=== PATIENT | female | born 1955 | race Caucasian/White ===

== ENCOUNTER 2018-04-04 12:25 | Day surgery (SDC) | payer MEDICARE ==
[2018-04-03 12:55] VITALS: BMI 44.6
--- NOTE | 2018-04-03 16:01 | HP ---
HISTORY OF PRESENT ILLNESS: Marcelle Bocanegra is a 63-year-old female, who in 2015 placed right arm fistula and then subsequently she underwent cephalic vein transposition fistula due to her obesity. She dialyzes at [facility] in [place] on Tuesday, Tuesday, and Tuesday, beginning dialysis at 10:30 a.m. She was referred to the [facility], where they placed a peritoneal dialysis catheter that exit her right lower quadrant. She has had problems with its functioning, has been back on at least 1 or 2 occasions for interventions, where they placed J-wires and she has been referred now for laparoscopic evaluation. The patient has had a pacemaker placed for bradycardia at [facility] in the last few months. She has had a cardiac stress test with Dr. Manjit Orozco 3 months ago that was normal, echo cardiogram that was normal. She is not on anticoagulation. She is safe to proceed from a cardiac standpoint as she is asymptomatic. ALLERGIES: PENICILLIN, HIVES; DEMEROL, PRURITUS; SHE IS LISTED ALPRAZOLAM ALLERGIES, BUT DOES NOT RECALL IT BEING A PROBLEM. SOCIAL HISTORY: Tobacco, never. Alcohol, never. MEDICATIONS: 1. Atorvastatin 40 mg a day. 2. Metoprolol ER 25 mg extended daily. 3. [place] 5/325 p.r.n. 4. Renvela three times a day with meals. 5. Sertraline 50 mg a day. 6. Verapamil ER 120 daily. 7. Temazepam 15 mg at bedtime as needed. 8. Gabapentin 100 mg daily. 9. Levemir 27 units q.a.m. 10. NovoLog insulin a.c. 5 units. 11. Levothyroxine 150 mcg daily. 12. Omeprazole 20 mg daily. 13. Acetaminophen as needed for pain. 14. She denies being on anticoagulation, but she is listed as being on Coumadin. 15. Aleve 220 mg every 12 hours. PAST MEDICAL HISTORY: End-stage renal disease; diabetes mellitus insulin dependent; diabetic retinopathy; coronary artery disease, stable; as noted above, hypertension, low thyroid treated medically; and chronic anticoagulation. PAST SURGICAL HISTORY: She had a coronary artery bypass grafting in [place] 15 years ago. She had a cardiac stress test by Dr. Manjit Orozco three months ago. Echocardiogram by Dr. Manjit Orozco three months ago. She has pacemaker placed for bradycardia. Recently, she has a history of atrial fibrillation, has been on anticoagulation. She has had an open cholecystectomy, hysterectomy, orthopedic surgery, right arm fistula in June 2014 with subsequent transposition. REVIEW OF SYSTEMS: Noncontributory. PHYSICAL EXAMINATION: VITAL SIGNS: Weight 248 pounds, 62 inches, 45 BMI. Blood pressure 114/35, pulse 80, and temperature 97.6 degrees. HEAD, EYES, EARS, NOSE, AND THROAT: Unremarkable. LUNGS: Clear to auscultation. CARDIAC: no murmur or gallop. Pacemaker in left chest. Loop recorder in left chest. Right arm cephalic vein transposition fistula, good thrill and bruit. No aneurysm. EXTREMITIES: No ankle edema. ASSESSMENT AND PLAN: 1. Dysfunctional peritoneal dialysis catheter. We will need laparoscopic evaluation. 2. Chronic anticoagulation. We will hold her Coumadin 5 days prior to operation. Check a PT/INR in the morning of surgery. She for atrial fibrillation and can resume her Coumadin 1 day postoperatively normal dose. 3. She can resume peritoneal dialysis about 10 days after surgery, more than likely. 4. Pacemaker status for bradycardia. 5. Chronic atrial fibrillation. 6. History of coronary artery disease, status post stress test 4 months ago. 7. Diabetes mellitus, insulin dependent. 8. Hypertension. Job ID: [id number]
[2018-04-04] MEDS ORDERED: Levofloxacin 500 mg/D5W 100 ml Premix Bag ONE (13:48)
[2018-04-04 13:50] LABS: #Basophils 0.1 thou/uL (0.0-0.2); #Eosinphils 0.3 thou/uL (0.0-0.7); #Lymphocytes 1.3 thou/uL (1.20-3.40); #Monocytes 0.4 thou/uL (0.11-0.59); #Neutrophils 4.1 thou/uL (1.40-6.50); %Basophils 1.1 % (0.0-1.0); %Eosinophils 4.8 % (0.0-10.0); %Lymphocytes 21.5 % (21.0-51.0); %Monocytes 7.1 % (0.0-10.0); %Neutrophils 65.6 % (42.0-75.0); Hemoglobin 11.5 g/dL (12.0-16.0); Mean Corpuscular HGB CONC 33.6 g/dL (32.0-36.0); Mean Corpuscular Hemoglobin 32.2 pg (27.0-31.0); Mean Platelet Volume 8.1 fL (7.4-10.4); Platelet Count 221 thou/uL (130-400); RBC Distribution Width 12.3 % (11.5-14.5); Red Blood Cell (RBC) Count 3.56 mill/uL (4.20-5.40); White Blood Cell (WBC) Count 6.2 thou/uL (4.8-10.8)
[2018-04-04 14:38] LABS: Anion Gap 16 mmol/L (10-20); BUN (Urea Nitrogen) 26 mg/dL (9.8-20.1); Calc. Creatinine Clearance 17 mL/min (70-130); Calcium 9.4 mg/dL (7.8-10.44); Carbon Dioxide 29 mmol/L (23-31); Chloride 91 mmol/L (98-107); Estimated GFR-MDRD 8; Glucose 138 mg/dL (80-115); Potassium 4.8 mmol/L (3.5-5.1); Sodium 131 mmol/L (136-145)
[2018-04-04] MEDS ORDERED: Fentanyl 100 MCG/2 ML VIAL ONE ×2 (14:39→16:33)
[2018-04-04] MEDS ORDERED: Bupivacaine/Epinephrine 0.25% 30 ML VIAL ONE (14:46)
[2018-04-04] MEDS ORDERED: Lidocaine 2% PF 5 ML VIAL ONE (14:46)
[2018-04-04] MEDS ORDERED: Bupivacaine HCl 0.5%/Epinephrine 1:200,000/PF 30 ml Vial ONE (15:17)
[2018-04-04] MEDS ORDERED: PROPOFOL 200 MG/20 ML VIAL ONE (15:51)
[2018-04-04] MEDS ORDERED: Lidocaine 1% PF 5 ML VIAL ONE (15:51)
[2018-04-04] MEDS ORDERED: PHENYLEPHRINE-NS 100 MCG/ML 10 ML SYRINGE ONE (15:51)
[2018-04-04] MEDS ORDERED: Ondansetron PF 4 MG/2 ML Vial ONE (15:51)
[2018-04-04] MEDS ORDERED: Glycopyrrolate 0.2 MG/ML 5 ML SYRINGE ONE (15:51)
[2018-04-04] MEDS ORDERED: ePHEDrine/0.9% NaCl/PF SYRINGE 50 mg/10 ml ONE (15:51)
[2018-04-04] MEDS ORDERED: Heparin 10,000 UNITS/1 ML VIAL ONE (16:04)
[2018-04-04] MEDS ORDERED: HYDROcodone/Acetaminophen 5/325 mg Tablet ONE (17:37)
--- NOTE | 2018-04-04 23:23 | OP ---
DATE OF PROCEDURE: 04/04/2018 PREOPERATIVE DIAGNOSES: End-stage renal disease, functioning dialysis; dysfunctional peritoneal dialysis catheter placed in [facility] with multiple adhesions from prior surgery. POSTOPERATIVE DIAGNOSES: End-stage renal disease, functioning dialysis; dysfunctional peritoneal dialysis catheter placed in [facility] with multiple adhesions from prior surgery. PROCEDURES PERFORMED: Laparoscopic revision of peritoneal dialysis catheter and laparoscopic adhesiolysis. FINDINGS: The patient had significant adhesions in the right lower quadrant of the small bowel and adhesions encapsulating the PD catheter. Sling suture placed to relocate the PD catheter to the left lower quadrant. Adhesions were taken down only to free the catheter. Otherwise, small bowel adhesions and omental adhesions were left in place. Omentopexy not necessary. ANESTHESIA: General, local 0.5% Marcaine with epinephrine 30 mL. DESCRIPTION OF PROCEDURE: The patient was taken to the operating room. Under general anesthesia, abdomen was prepared with ChloraPrep and draped in routine fashion. The patient has a PD catheter exiting the right lower quadrant. She is morbidly obese with a dependent pannus. She has a midline scar in her lower abdomen. Left lateral subcostal incision was made. Pneumoperitoneum to 15 mmHg was obtained with a Veress needle, replaced with a 5 port and the laparoscope inserted. There were multiple small bowel adhesions in the right lower quadrant extending down to the pelvis. I could not even visualize the PD catheter. In an adhesion-free area in the left lateral lower abdomen, the 5 mm port placed. I was able to take down adhesions from the PD catheter enveloped in scar tissue. It was taken down and visualized and pulled out of its tunnel. I then placed a wire through the PD catheter to disrupt the fibrinous material. I then flushed it with heparinized saline solution freeing all the debris and the catheter. A sling suture of 2-0 Ethibond was then placed using a GraNee needle, a transabdominal fixation localizing the catheter in the left lower quadrant. The patient tolerated the procedure well. There were adhesions of small bowel into the left lower lateral pelvis and adhesions of small bowel into the right pelvis leaving a window of adhesion free area in the left lower quadrant. Omentum was adhesed to the anterior abdominal wall superiorly and omentopexy not necessary. If this peritoneal dialysis catheter does not work, then she may have to be hemodialysis dependent and the catheter eventually removed as I do not think there is anything else I can do to facilitate its function. Catheter was flushed with heparinized solution. Pneumoperitoneum reduced. All instruments removed and all skin incisions were approximated with a subdermal 4-0 Monocryl and [place] glue applied. Job ID: [id number]
== END 2018-04-04 18:25 | disposition home or self-care (01) ==
LOC: SDC 12:25
PROVIDERS: ATTEND Specialist
PROC: 0WHG43Z Insertion of Infusion Device into Peritoneal Cavity, Percutaneous Endoscopic Approach (ICD-10-PCS; principal; 2018-04-04)
DX: T85.611A Breakdown (mechanical) of intraperitoneal dialysis catheter, initial encounter (principal); I12.0 Hypertensive chronic kidney disease with stage 5 chronic kidney disease or end stage renal disease; E11.22 Type 2 diabetes mellitus with diabetic chronic kidney disease; N18.6 End stage renal disease; K66.0 Peritoneal adhesions (postprocedural) (postinfection); I25.10 Atherosclerotic heart disease of native coronary artery without angina pectoris; E03.9 Hypothyroidism, unspecified; I48.2 Chronic atrial fibrillation; Z88.0 Allergy status to penicillin; Z91.048 Other nonmedicinal substance allergy status; Z88.8 Allergy status to other drugs, medicaments and biological substances; Z99.2 Dependence on renal dialysis; Z95.810 Presence of automatic (implantable) cardiac defibrillator; Z79.899 Other long term (current) drug therapy; Z79.4 Long term (current) use of insulin
CPT/HCPCS: 80048; 85025; 96374; J0131; J0670; J1644; J1956; J2001; J2405; J2704; J3010

== ENCOUNTER 2019-04-03 11:33 | Inpatient (IN) | payer MEDICARE ==
[2019-04-03] MEDS ORDERED: Calcium Gluc 4.6 MEQ/10 ML (100 MG/ML) ONE (11:43)
[2019-04-03] MEDS ORDERED: Insulin Regular 300 UNITS/3 ML VIAL ONE (11:43)
[2019-04-03] MEDS ORDERED: Dextrose 50% Abboject 50 ML SYRINGE ONE (11:43)
[2019-04-03] MEDS ORDERED: cefTRIAXone\\ROCEPHIN 1 GM VIAL ONE (11:54)
[2019-04-03] MEDS ORDERED: Pantoprazole 40 MG VIAL ONE (11:54)
[2019-04-03] MEDS ORDERED: Fentanyl 100 MCG/2 ML VIAL ONE (11:56)
[2019-04-03] MEDS ORDERED: Albuterol Sulfate 2.5 mg/3 ml Neb ONE (12:00)
[2019-04-03] MEDS ORDERED: Albuterol Sulfate 2.5 mg/0.5 ml Neb ONE (12:00)
[2019-04-03] MEDS ORDERED: Ondansetron PF 4 MG/2 ML Vial ONE (12:03)
--- NOTE | 2019-04-03 12:39 | RAD ---
EXAM: Single view of the chest HISTORY: Altered mental status COMPARISON: 12/24/2016 FINDINGS: Single view of the chest shows an enlarged but stable cardiomediastinal silhouette. The pa tient is status post CABG. A cardiac monitoring device projects over the left chest wall. A right IJ central venous catheter seen with its tip in the superior vena cava. A pacemaker seen with its qasim ds in the right atrium and ventricle. No pneumothorax is seen. There is no evidence of consolidation, mass, or pleural effusion. The bones are unremarkable. IMPRESSION: Cardiomegaly without evidence of acute cardiopulmonary disease
[2019-04-03 12:42] LABS: Hemoglobin 9.8 g/dL (12.0-16.0); Mean Corpuscular HGB CONC 31.4 g/dL (32.0-36.0); Mean Corpuscular Hemoglobin 30.3 pg (27.0-31.0); Mean Corpuscular Volume 96.7 fL (78.0-98.0); Mean Platelet Volume 7.7 fL (7.4-10.4); Platelet Count 372 thou/uL (130-400); RBC Distribution Width 16.4 % (11.5-14.5); Red Blood Cell (RBC) Count 3.23 mill/uL (4.20-5.40); White Blood Cell (WBC) Count 11.8 thou/uL (4.8-10.8)
[2019-04-03 12:52] LABS: Base Excess-Venous -2.5 mmol/L (-2.0 to 3.0); Bicarbonate (HCO3v) 23.8 mmol/L (22.0-28.0); CO2 Tension (PvCO2) 46.1 mmHg (40.0-50.0); Calcium, Ionized 1.07 mmol/L (See Comments:); Chloride 96 mmol/L (98-107); Glucose 112 mg/dL (80-115); Hemoglobin - Calc 11.7 g/dL (12.0-16.0); Lactate 3.88 mmol/L (0.50-2.20); Potassium 3.2 mmol/L (3.5-5.1); Sodium 132 mmol/L (138-145); T. Carbon Dioxide 25.2 mmol/L (22.0-28.0); vO2 Saturation-calc 92.1 % (60.0-85.0)
[2019-04-03 13:07] LABS: ALT (SGPT) 54 U/L (8-55); AST (SGOT) 157 U/L (5-34); Albumin 2.4 g/dL (3.4-4.8); Alkaline Phosphatase 196 U/L (40-110); Anion Gap 19 mmol/L (10-20); BUN (Urea Nitrogen) 34 mg/dL (9.8-20.1); Bilirubin, Total 0.9 mg/dL (0.2-1.2); Calc. Creatinine Clearance 0 mL/min (70-130); Calcium 8.4 mg/dL (7.8-10.44); Carbon Dioxide 24 mmol/L (23-31); Chloride 95 mmol/L (98-107); Estimated GFR-MDRD 8; Globulin 3.3 g/dL (2.4-3.5); Glucose 110 mg/dL (80-115); Potassium 3.5 mmol/L (3.5-5.1); Protein, Total 5.7 g/dL (6.0-8.3); Sodium 134 mmol/L (136-145)
[2019-04-03 13:09] LABS: Band 12 % (5-11); Hypochromia SLIGHT = 6-15 cells (100X) (0-5/hpf); Lymphocytes 4 % (21-51); MDiff Complete? YES; Monocytes 1 % (0-10); Neutrophil 82 % (42-75); Nucleated RBC 1 % (0); Platelet Morphology Comment Appears Adequate; Polychromasia MODERATE = 3-4 cells (100X) (0-2/hpf); Reactive Lymphocytes 1 % (0-10)
[2019-04-03 13:14] LABS: Bilirubin Small (Negative); Blood, Urine Large (Negative); Glucose, Urine (Dipstick) Negative (Negative); Leukocyte Large (Negative); Nitrite Negative (Negative); Protein, Urine (Dipstick) > or equal to 300 mg/dL (Neg-Trace); Urobilinogen 0.2 mg/dL (Less than 2)
[2019-04-03 13:16] LABS: Clarity Opaque (Clear)
[2019-04-03 13:26] LABS: Bacteria/HPF 4+ HPF (None Seen); WBC/HPF Greater Than 50 HPF (0-3)
[2019-04-03 13:30] LABS: CKMB 2.4 ng/mL (0-6.6)
[2019-04-03] MEDS ORDERED: GENTAMICIN SULFATE IVPB SCH (14:15)
[2019-04-03] MEDS ORDERED: SODIUM CHLORIDE 0.9% IVPB SCH (14:15)
[2019-04-03] MEDS ORDERED: Ziprasidone 20 MG VIAL ONE (15:28)
[2019-04-03 15:34] LABS: Lactic Acid 3.6 mmol/L (0.5-2.2)
[2019-04-03] MEDS ORDERED: Ondansetron PF 4 MG/2 ML Vial IVP PRN (16:01)
[2019-04-03] MEDS ORDERED: Dextrose 50% Abboject 50 ML SYRINGE SLOW IVP PRN (16:11)
[2019-04-03] MEDS ORDERED: CCU Electrolyte Replacement 1 EACH FS SCH (16:11)
[2019-04-03] MEDS ORDERED: HumaLOG 300 UNITS/3 ML VIAL SC PRN (16:11)
[2019-04-03] MEDS ORDERED: Dextrose 5% in Water 1,000 ML IV PRN (16:11)
[2019-04-03] MEDS ORDERED: Lactated Ringer's 1,000 ML IV SCH (16:15)
[2019-04-03] MEDS ORDERED: Vancomycin HCl 1.5 GM in Sodium Chloride 0.9% 250 ML 300 ML IVPB SCH (16:15)
--- NOTE | 2019-04-03 16:25 | PDOC.FPRHP ---
- History of Present Illness Chief Complaint: UTI / sepsis History of Present Illness: Ms. Bocanegra is a 64yoF who is a resident of a residential in [place], [place]. Her mentation is altered and she is not verbal, history obtained from NH, EMS, ED physician, and sister who is next of kin. She has a history of ESRD, DM II, HTN, Atrial fibrillation, CAD, dyslipidemia, and physical deconditioning. She presented to the ED after the she became unresponsive at the residential. She refused dialysis on Tuesday and yesterday (Tuesday) she went and the lift for her was not available and she was not able to get dialysis. Her sister states that she was about at her baseline on Tuesday, talking and normal appearing. When EMS arrived to transport her, she was noted to have RBBB on EKG. During transport she went into ventricular tachycardia. She was cardioverted and resumed normal sinus rhythm. Hyperkalemia protocol was initiated and she was given insulin, D50, and calcium chloride. She was also given zofran, albuterol, protonix, rocephin, vancomycin, gentamicin and geodon while in the ED. A urine sample collected was noted to be purulent with 4+ bacteria, >50 WBC, and Large amount of leukocyte esterase. EMS also noted a large amount of bright red blood per rectum. At the time we examined her, her sister was there to provide details. ED Course: SEE HPI - Allergies/Adverse Reactions Allergies Allergy/AdvReac Type Severity Reaction Status Date / Time adhesive Allergy Intermediate ITCHING Verified 04/03/18 12:52 alprazolam Allergy Intermediate PT DOES Verified 04/03/18 12:52 NOT REMEMBER latex Allergy Intermediate ITCHING Verified 04/03/18 12:52 meperidine HCl [From Demerol] Allergy Intermediate ITCHING, Verified 04/03/18 12 :52 SOB Penicillins Allergy Intermediate ITCHING, Verified 04/03/18 12:52 HIVES nalbuphine Allergy Verified 10/11/16 21:38 - Home Medications Medication Instructions Recorded Confirmed Type Atorvastatin Calcium 10 mg PO HS 09/10/14 04/03/18 History Sevelamer Carbonate [Renvela] 1,600 mg PO TID-WM 09/16/14 04/03/18 History HYDROcodone Bit/APAP 10/325 [[place]] 1 tab PO Q6HR PRN 12/24/14 04/03/18 History Gabapentin 300 mg PO TID 09/16/15 04/03/18 History Levemir Flexpen [Levemir FlexPen] 28 unit SC QAM 09/16/15 04/03/18 History Omeprazole 20 mg PO BID 09/16/15 04/03/18 History Humulin R 5 unit SC TID-WM 10/11/16 04/03/18 History Dronedarone HCl [Multaq] 400 mg PO BID-WM 04/03/18 04/03/18 History - History PMHx: ESRD, DM II, HTN, atrial fibrillation w/ RVR, cad, dyslipidemia, PSHx: Cholecystectomy, hysterectomy, left hip repair, mitral valve replacement, cataract removal, cardiac cath w/ stenting, colonoscopy (negative in 2017) Hemicolectomy? (see colonoscopy op note) FHx: + for colon cancer, CAD Social: unaware. - Review of Systems ROS unobtainable: due to mental status Gastrointestinal: reports: GI bleeding - Vital signs BP: 136/50 HR: 100 RR: 15 Tmax: 98.7 Pox: 100% on 3L Wt: 113kg - Physical Exam -Constitutional: Somnolent, A&O X 0 HEENT: normocephalic and atraumatic, PERRLA, conjunctiva clear, MMM Neck: trachea midline, no JVD -Neck: Right IJ in place -Heart: Tachycardic, sinus rhythm. 3/6 systolic murmur. Lungs: CTAB, no respiratory distress, good air movement Abdomen: soft, bowel sounds present, no masses/distention -Musculoskeletal: bilateral LE muscular atrophy, chronic wounds to the achilles tendon area bilaterally -Neurological: A&O x 0. GCS 11 Skin: no jaundice -Skin: areas of chronic skin breakdown present Heme/Lymphatic: no unusual bruising or bleeding, no purpura, no petechia FMR H&P: Results - Labs Result Diagrams: 04/03/19 12:29 04/03/19 12:29 Lab results: WBC 11.8 thou/uL (4.8-10.8) H 04/03/19 12:29 Hgb 9.8 g/dL (12.0-16.0) L 04/03/19 12:29 Hct 31.2 % (36.0-47.0) L 04/03/19 12:29 MCV 96.7 fL (78.0-98.0) 04/03/19 12:29 Plt Count 372 thou/uL (130-400) 04/03/19 12:29 Band Neuts % (Manual) 12 % (5-11) H 04/03/19 12:29 VBG pCO2 46.1 mmHg (40.0-50.0) 04/03/19 12:37 VBG pO2 69.5 mmHg (35.0-45.0) H 04/03/19 12:37 Sodium 134 mmol/L (136-145) L 04/03/19 12:29 Potassium 3.5 mmol/L (3.5-5.1) 04/03/19 12:29 Chloride 95 mmol/L (98-107) L 04/03/19 12:29 Carbon Dioxide 24 mmol/L (23-31) 04/03/19 12:29 BUN 34 mg/dL (9.8-20.1) H 04/03/19 12:29 Creatinine 5.53 mg/dL (0.6-1.1) H 04/03/19 12:29 Glucose 110 mg/dL (80-115) 04/03/19 12:29 Lactic Acid 3.6 mmol/L (0.5-2.2) H 04/03/19 15:10 Calcium 8.4 mg/dL (7.8-10.44) 04/03/19 12:29 Total Bilirubin 0.9 mg/dL (0.2-1.2) 04/03/19 12:29 AST 157 U/L (5-34) H 04/03/19 12:29 ALT 54 U/L (8-55) 04/03/19 12:29 Alkaline Phosphatase 196 U/L (40-110) H 04/03/19 12:29 CK-MB (CK-2) 2.4 ng/mL (0-6.6) 04/03/19 12:29 B-Natriuretic Peptide 681.6 pg/mL (0-100) H 04/03/19 15:50 Serum Total Protein 5.7 g/dL (6.0-8.3) L 04/03/19 12:29 Albumin 2.4 g/dL (3.4-4.8) L 04/03/19 12:29 Urine Ketones Trace mg/dL (Negative) A 04/03/19 12:39 Urine Blood Large (Negative) A 04/03/19 12:39 Urine Nitrite Negative (Negative) 04/03/19 12:39 Ur Leukocyte Esterase Large (Negative) H 04/03/19 12:39 Urine RBC 11-20 HPF (0-3) A 04/03/19 12:39 Urine WBC Greater Than 50 HPF (0-3) A 04/03/19 12:39 Ur Squamous Epith Cells 4-6 HPF (0-3) A 04/03/19 12:39 Urine Bacteria 4+ HPF (None Seen) A 04/03/19 12:39 - Radiology Interpretation Chest x-ray Status: report reviewed by me (Cardiomegaly without acute process) FMR H&P: A/P - Problem List (1) Sepsis Current Visit: Yes Status: Acute Code(s): A41.9 - SEPSIS, UNSPECIFIED ORGANISM (2) UTI (urinary tract infection) Current Visit: Yes Status: Acute (3) Anemia Current Visit: No Status: Chronic Code(s): D64.9 - ANEMIA, UNSPECIFIED Qualifiers: Other causes of anemia: chronic disease, kidney (4) Atrial fibrillation, chronic Current Visit: No Status: Chronic Code(s): I48.2 - CHRONIC ATRIAL FIBRILLATION * DO NOT USE * Comment: Continue Verapamil 120mg hs, Resume Metoprolol, will need to consider timing of starting anticoagulation given ? GI bleeding, may not be a viable candidate given circumstances, continue ASA 81mg daily (5) CAD (coronary artery disease) Current Visit: No Status: Chronic Code(s): I25.10 - ATHSCL HEART DISEASE OF [place] CORONARY ARTERY W/O ANG PCTRS Qualifiers: Coronary Disease-Associated Artery/Lesion type: [place] artery [place] vs. transplanted heart: [place] heart Associated angina: without angina Qualified Code(s): I25.10 - Atherosclerotic heart disease of [place] coronary artery without angina pectoris (6) Diabetes mellitus Current Visit: No Status: Chronic Code(s): E11.9 - TYPE 2 DIABETES MELLITUS WITHOUT COMPLICATIONS Qualifiers: Diabetes mellitus type: type 2 Diabetes mellitus complication status: with kidney complications Diabetes mellitus complication detail: with chronic kidney disease Chronic kidney disease stage: on chronic dialysis Comment: Continue home insulin regimen, ISS, accuchecks AC/HS (7) Dyslipidemia Current Visit: No Status: Chronic Code(s): E78.5 - HYPERLIPIDEMIA, UNSPECIFIED (8) ESRD (end stage renal disease) on dialysis Current Visit: No Status: Chronic Code(s): N18.6 - END STAGE RENAL DISEASE; Z99.2 - DEPENDENCE ON RENAL DIALYSIS Comment: HD per Renal service - Plan This is a 64yo F being admitted for sepsis, UTI, NSTEMI, possible GI bleed, and UTI. Consults: Cards - Dr. Lemos, Nephro - Dr. Marina NSTEMI - In sinus rhythm s/p cardioversion for ventricular tachycardia. - Initial troponin 1.291. - Cardiology consulted, appreciate recommendations. - holding anticoagulation at this time due to reported GI bleeding. UTI - UA dirty. Culture pending. - empirically will start Vancomycin and Cefepime with renal dosing adjustments. Sepsis - 1L LR bolus, patient is due for dialysis will not bolus further - empiric antibiotics started. - blood and urine cultures pending. - s/p rocephin, vanc, and gent in the ED. Will continue with Cefepime and Vancomycin. - trend lactic acid. procal ordered. - CCU electrolyte replacement protocol ESRD on HD - Missed 2 previous dialysis sessions. - Will consult her property disposal officer, Dr. Marina. Appreciate recommendations. - Potassium 3.5 AMS - GCS 11 - Patient currently semi-awake but not responding to commands. - She does respond to pain. - Will give geodon PRN for agitation. GI Bleeding - reported by EMS and residential. No active bleeding. H/H stable. Will monitor and order FOBT tomorrow. - EGD / Colonoscopy in 2017 was negative except for diverticulosis. - If bleeding recurs will consider GI consult. - PPI initiated. DM II - will utilize sliding scale insulin Palliative care consulted for family support and wound care consulted for chronic wounds. Lines/Tubes: right IJ, 2 peripheral IVs Code status: DNR-DNI GI prophylaxis: Protonix Dispo: admit to IMCU. LOS > 48hrs. Case discussed with Dr. Guallpa. FMR H&P: Upper Level - Pertinent history This is a 64yo F who presented today from a NH. Unable to obtain significant amount of hx due to patient status. The patient's sister was at the bedside. She states that she saw the patient at her baseline on Tuesday. She then kept saying "help me" yesterday and getting more disoriented. She missed HD on Tuesday and again today per the sister. She states that the patient refused HD on Tuesday. The sister states that in August of this past year she was living on her own and then was admitted to the hospital for wounds at the back of her heels. She said since then she has had a steady decline. She has a hx of cardiac stents placed. States her single ending machine operator is Dr. Orozco at [facility]. Diamond Die Driller is Dr. Marina. See internet application developer note for full HPI and PMH - Pertinent findings PE: General: no distress, obese F HEENT: NC/AT, PERRL, not responsive to ocular motion testing Cardio: 3/6 systolic murmur over the aorta, no rubs or gallops, regular rate Resp: CTAB, no wheezes or crackles noted Abd: soft, non tender, non distended Neuro: does not follow commands, opens eyes spontaneously, moves all limbs Skin: breakdown of skin on posterior ankles, skin tear on right hand - Plan Date/Time: 04/03/19 3715 I, Radha Mason MD, have evaluated this patient and agree with findings/plan as outlined by internet application developer resident. Pertinent changes/additions are listed here. This is a 64yo F being admitted for urosepsis, NSTEMI, possible GI, and UTI. Consults: Cards - Dr. Lemos, Nephro - Dr. Marina URINALYSIS TECHNICIAN - Patient currently awake but not responding to commands - verbal or physical. She does respond to pain. Will give geodon PRN for agitation. Resp - VBG: pH7.321, pCO2 46.1, O2 69.5, base excess -2.5 - currently on NC, continue. Keep sats > 90%. CV - not requiring pressors at this time. BP stable. Hx of HTN. - NSTEMI: initial trop elevated 1.291. s/p vfib w/ cardioversion. Now in SR. Cards consulted, appreciated recs. - Will continue to monitor VS per unit protocol GI - per NH and EMS report BRBPR. No active bleeding on exam in the ER. H/H stable. Will order FOBT. - Had EGD/colonoscopy in [address] Mary that showed left diverticulosis - repeat in 5year. Can consider consulting GI if patient continues to have BRBPR. - PPI initiated, on rocephin for ppx Heme - H/H 9.8/31.2 Gu/Renal - ESRD on HD. likely urosepsis considering mental status. BUN/Cr: 34/5.53. Missed HD x2. Nephrology consulted for HD. - UA: color - brown, opaque, +blood, +bacteria, large leuks Infection - UA + for UTI. - Blood and urine cx pending - LA elevated, will trend. - Will give 1 L bolus and continue mIVF - s/p rocephin, vanc and gent in the ER. Will continue vanc and cefepime for abx coverage. Endo - hx of DM on HD Lines/Tubes: right IJ, 2 peripherals Code status: DNR Ppx: protonix Dispo: admit to IMCU. LOS > 48hrs. Case discussed with Dr. Guallpa. Addendum - Attending - Attending Attestation Date/Time: 04/03/192024 I personally evaluated the patient and discussed the management with the team. I agree with the History, Examination, Assessment and Plan documented above with any addition or exceptions noted below. Patient s/p v-tach with CV en route, with elevated TnI and missed 2 dialysis sessions. She is repetitive saying "don't hurt me" and is unable to answer questions. On exam she is mildly tachycardic and has basilar rales. Minimal LE edema. Large pannus, soft and not apparently TTP. Labs and imaging reviewed. Admit to IMCU, consult cards for an opinion and nephro for dialysis. Only 1 L for IVFB and continue vanc and change rocephin/gent to cefepime for presumed complicated UTI. Follow closely.
[2019-04-03] MEDS ORDERED: Cefepime 2 GM in Sodium Chloride 0.9% 100 ML IVPB SCH ×2 (16:30→17:45)
[2019-04-03] MEDS ORDERED: Ziprasidone 20 MG VIAL IM PRN (16:34)
[2019-04-03] MEDS ORDERED: Sterile Water 10 ML VIAL FS PRN (17:27)
[2019-04-03] MEDS ORDERED: CCU ELECTROLYTE REPLACEMENT PROTOCOL FS PRN (17:30)
[2019-04-03] MEDS ORDERED: Potassium Chloride 40 MEQ in Sodium Chloride 0.9% 250 ML 250 ML IVPB PRN (17:30)
[2019-04-03] MEDS ORDERED: Potassium Chloride 20 MEQ TAB PO PRN (17:30)
[2019-04-03] MEDS ORDERED: Potassium Phosphate 9 MMOL in Sodium Chloride 0.9% 100 ML IVPB PRN (17:30)
[2019-04-03] MEDS ORDERED: Magnesium 2 GM/50 ML 2 GM in Premix Bag 1 BAG IVPB PRN (17:30)
[2019-04-03] MEDS ORDERED: Potassium Chloride 40 MEQ in Premix Bag 1 BAG IVPB PRN (17:30)
[2019-04-03] MEDS ORDERED: Potassium Phosphate 15 MMOL in Sodium Chloride 0.9% 250 ML 250 ML IV PRN (17:30)
[2019-04-03] MEDS ORDERED: PHOS-NAK 1 PKT PACK PO PRN ×2 (17:30)
[2019-04-03] MEDS ORDERED: Magnesium Oxide 400 MG TAB PO PRN ×2 (17:30)
[2019-04-03] MEDS ORDERED: Potassium Phosphate 12 MMOL in Sodium Chloride 0.9% 250 ML 250 ML IV PRN (17:30)
[2019-04-03] MEDS: Lactated Ringer's 1,000 ML IV SCH (17:54)
[2019-04-03] MEDS ORDERED: Albumin 25% 100 ML ONE (18:44)
[2019-04-03] MEDS ORDERED: Vancomycin 1.5 GRAM/300 ML BAG 1.5 GM in Premix Bag 1 BAG IVPB SCH (18:45)
[2019-04-03] MEDS ORDERED: HOLD VANCOMYCIN FOR LEVEL >20 FS SCH (18:45)
[2019-04-03] MEDS ORDERED: Vancomycin HCl 750 MG in Sodium Chloride 0.9% 250 ML 250 ML IVPB SCH (18:45)
[2019-04-03] MEDS ORDERED: Vancomycin HCl 1 GM in Premix Bag 1 BAG IVPB SCH (18:45)
[2019-04-03] MEDS ORDERED: Vancomycin HCl 1.25 GM in Sodium Chloride 0.9% 250 ML 250 ML IVPB SCH (18:45)
[2019-04-03] MEDS ORDERED: Albumin 25% 25 GM/100 ML BOT IVPB PRN (19:19)
[2019-04-03] MEDS: Amiodarone 450 MG, Admixture Fee 1 EACH in Dextrose 5% in Water 250 ML IVPB SCH (19:35)
[2019-04-03 20:12] LABS: Lactic Acid 1.3 mmol/L (0.5-2.2)
--- NOTE | 2019-04-03 20:22 | PDOC.EVN ---
Event Note - Event Note Event Note: Code rachele called for wide complex tachycardia in the 150's. Patient with chest pain during this episode. ECG demonstrated wide complex v-tach. Sister called and she confirmed she wanted cardioversion but did not want intubation or chest compressions. Sync @ 200 with resultant slowly, apparently paced, rhythm with resolution of symptoms. Plan to notify cardiology. TnI just repeated. Stat BMP as she has only been only dialysis here for a short time.
[2019-04-03 20:48] LABS: Anion Gap 15 mmol/L (10-20); BUN (Urea Nitrogen) 20 mg/dL (9.8-20.1); Calc. Creatinine Clearance 29 mL/min (70-130); Calcium 7.9 mg/dL (7.8-10.44); Carbon Dioxide 28 mmol/L (23-31); Chloride 98 mmol/L (98-107); Estimated GFR-MDRD 13; Glucose 126 mg/dL (80-115); Potassium 3.6 mmol/L (3.5-5.1); Sodium 137 mmol/L (136-145)
[2019-04-03 20:58] LABS: Troponin I 1.394 ng/mL (< 0.028)
[2019-04-03] MEDS ORDERED: Amiodarone 150 MG in Dextrose 5% in Water 100 ML IVPB SCH (21:00)
[2019-04-03 23:51] LABS: Critical Call Chem Troponin I RESULT DECREASING; Troponin I 1.295 ng/mL (< 0.028)
--- NOTE | 2019-04-04 01:28 | CON ---
DATE OF CONSULTATION: HISTORY OF PRESENT ILLNESS: Patient is a 64-year-old woman who presented with altered mental status. The patient has a long cardiac history. She was seen in September of 2016 with new onset atrial fibrillation. She has a previous history of mitral valve repair and coronary artery disease. The patient also has had placement of electronic pacemaker. She has end-stage renal disease. She presented to the emergency room with altered mental status. The patient is unable to give a coherent history. PAST MEDICAL HISTORY: 1. Coronary artery disease. 2. Atrial fibrillation. 3. History of mitral valve replacement. 4. Pacemaker placement. PAST SURGICAL HISTORY: Mitral valve repair, AV fistula, hysterectomy,and cholecystectomy. SOCIAL HISTORY: Nonsmoker. MEDICATIONS: See nursing list. ALLERGIES: PENICILLIN, [place], DEMEROL PHYSICAL EXAMINATION: GENERAL: Obtunded woman. VITAL SIGNS: Blood pressure of 134/44. NECK: Full. LUNGS: Coarse breath sounds bilateral. HEART: Regular rate and rhythm. Normal S1, S2. ABDOMEN: Distended. EXTREMITIES: Shows severe bilateral edema. LABORATORY DATA: Sodium 132, potassium 3.2, chloride 96. White blood cell count 11.8, hemoglobin 9.8, hematocrit 31.2, platelets are 372. EKG revealed wide-complex tachycardia suggestive of ventricular tachycardia. IMPRESSION: 1. Altered mental status. 2. History of mitral valve repair. 3. History of coronary artery disease. 4. Wide-complex tachycardia suggestive of ventricular tachycardia. 5. Sepsis. PLAN: This patient presents with overwhelming sepsis. She is noted to be in a wide-complex tachycardia suggestive of ventricular tachycardia. I would recommend IV amiodarone. With the patient's chronic medical problems, her prognosis is very guarded. We will follow this patient with you through her hospitalization. Job ID: [id number] [facility]
[2019-04-04] MEDS: Amiodarone 450 MG, Admixture Fee 1 EACH in Dextrose 5% in Water 250 ML IVPB SCH (02:08)
[2019-04-04] MEDS: Lactated Ringer's 1,000 ML IV SCH ×3 (02:08→16:20)
[2019-04-04] MEDS ORDERED: cefTRIAXone\\ROCEPHIN 2 GM in Sodium Chloride 0.9% 100 ML IVPB SCH (12:00)
[2019-04-04 12:14] VITALS: BP 97/78
[2019-04-04] MEDS ORDERED: Vancomycin HCl 1 GM in Premix Bag 1 BAG IVPB SCH (14:00)
--- NOTE | 2019-04-04 14:34 | RAD ---
PORTABLE CHEST: 04/04/19 HISTORY: Respiratory distress. COMPARISON: Prior day's exam. Heart size is enlarged. There are postop sternotomy changes and valve replacement. Central line is un changed in position. Pulmonary vessels are mildly engorged. IMPRESSION: Stable exam. POS: [facility]
--- NOTE | 2019-04-04 15:12 | PDOC.PALCO ---
Palliative Care Consult - Consult Details Requesting Physician: Dr Light Reason for Consult: family support Family Members Present: Patient sister Fernanda who is also MPOA - Pertinent HPI 64 year old female who currently resides at [facility]. Prior to August 2018 patient was receiving her dialysis at home via peritoneal dialysis. Secondary to complications, frequent hospitalizations and subsequent care home placement patient began receiving hemodialysis as peritoneal dialysis can only be done in the home setting. Patient previous goal was to return to the home setting where she could resume peritoneal dialysis as she "hates needles". 03/30 patient refused hemodialysis and when she returned to dialysis on Monday 04/02 she was not able to transfer from the wheelchair to the hemodialysis chair , thus she was sent back to the facility and to return 04/03. EMS was called to the facility 04/03 after becoming unresponsive, in route to the hospital she went into ventricular tachycardia and required cardioversion. At the emergency room she was noted to have purulent urine as well as bloody stool. Admitted to IM for medical management. - Pertinent PMH ESRD requiring dialysis, DM II, HTN, Atrial Fib, CAD, left hip repair, mitral valve replacement, - Social History Smoking Status: Unknown if ever smoked Alcohol Use: none Drug Use History: none Living Situation: care home resident - Medications MAR Reviewed: Yes - Allergies Allergies/Adverse Reactions: Allergies Allergy/AdvReac Type Severity Reaction Status Date / Time adhesive Allergy Intermediate ITCHING Verified 04/03/18 12:52 alprazolam Allergy Intermediate PT DOES Verified 04/03/18 12:52 NOT REMEMBER latex Allergy Intermediate ITCHING Verified 04/03/18 12:52 meperidine HCl [From Demerol] Allergy Intermediate ITCHING, Verified 04/03/18 12 :52 SOB Penicillins Allergy Intermediate ITCHING, Verified 04/03/18 12:52 HIVES nalbuphine Allergy Verified 10/11/16 21:38 - Subjective lethargic, arousable and appears oriented to self. Unable to perform a ROS secondary to patient altered mental status - ROS Non Response: due to mental status - Objective Vital Signs: Vital Signs - Most Recent Temp Pulse Resp BP Pulse Ox 97.7 F 84 20 97/78 100 04/04/19 12:00 04/04/19 12:00 04/04/19 12:00 04/04/19 12:04/04/19 13:44 Palliative Performance Scale: 30 - Physical Exam Constitutional: encephalitic, ill appearing HEENT: EOMI, moist MMs, sclera anicteric Respiratory: clear to auscultation bilateral (diminished to bases bilaterally) Deviation from normal: murmur, intermitt irr Gastrointestinal: positive bowel sounds, incontinent Deviation from normal: minimal urine output, dark but clear Musculoskeletal: edema present, muscle wasting Skin: bruising, fragile Deviation from normal: oriented to self, confused - Problem List (1) Palliative care encounter Code(s): Z51.5 - ENCOUNTER FOR PALLIATIVE CARE Current Visit: Yes Status: Acute (2) Physical deconditioning Code(s): R53.81 - OTHER MALAISE Current Visit: Yes Status: Acute (3) Atrial fibrillation, chronic Code(s): I48.2 - CHRONIC ATRIAL FIBRILLATION * DO NOT USE * Current Visit: No Status: Chronic (4) ESRD (end stage renal disease) on dialysis Code(s): N18.6 - END STAGE RENAL DISEASE; Z99.2 - DEPENDENCE ON RENAL DIALYSIS Current Visit: No Status: Chronic - Plan/Recommendations Plan: Visited with patient sister at length, reviewed patient previous goals. After patient gains an alertness the sister Fernadna is requesting to revisit goals secondary to removal of peritoneal cath and returning to home setting not an option any longer secondary to level of care required for patient and need to return to care home setting. Will discuss measures to alleviate fear/dislike to dialysis to encourage compliancy. Will also revisit out of hospital DNAR status with patient and sister. Discussion with sister in relation to disease trajectory, teach back method utilized and Fernanda appears to have understanding of patient condition. [75] minutes spent on this encounter with >50% of the time in counseling and coordination of care. Thank you for this very appropriate consult.
[2019-04-04] MEDS ORDERED: Norepinephrine 8 MG/0.9% NS 250 ML IVPB SCH (15:15)
--- NOTE | 2019-04-04 15:21 | PDOC.EVN ---
Event Note - Event Note Event Note: Was paged by nursing staff with reported BP's of systolic 50's -60's/30's. Amiodarone stopped. Nursing staff reports intermittent runs of Vtach, nonsustained at this time. Verbal order for 500ml bolus given. Went to evaluate pt and speak with family. Pt still innapropriately responsive, not able to answer questions. BP at the time of my evaluation had improved to 90/ 56. Spoke with family who would like pt to receive pressors. We did discuss that pt prognosis is guarded and this is a worsening of her status. Family reports understanding. Will transfer to ICU for levophed. R IJ central line in place. Will plan to restart amio after levophed is started. Addendum - Attending - Attending Attestation Date/Time: 04/04/19 3811 Subsequently called for seng jeffrey. Patient on arrival awake with no changes to her mental status. She was in a wide complex rhythm. CV @ 100J was performed with resolution to a HR of 80's, wide complex, irregular, with no apparent P waves on the monitor. 12 lead pending. Will continue to try to reach cardiology. Patient transferred to ICU. is onboard, as there is difficulty with monitoring NIBP would consider invasive monitoring.
--- NOTE | 2019-04-04 15:42 | CON ---
DATE OF CONSULTATION: HISTORY OF PRESENT ILLNESS: A 64-year-old female, admitted to the hospital after she has missed 2 dialysis sessions in the alf. She has been having arrhythmias and is on amiodarone drip. She has had episodes of v tach. The patient is confused on mental status, slightly improved since dialyzed. She uses a right arm fistula for dialysis. This right arm fistula was established in 2014, inflow proximal radial artery and outflow primary cephalic vein secondary to basilic vein. The patient had a dysfunctional fistula, it was revised 2 months later in 06/2014 with reverse saphenous vein segment interposition for a stenotic segment. On 09/17/2014, cephalic vein transposition fistula had to be performed because of obesity. On 12/24/2014, I removed her hemodialysis catheter as the fistula is working well. On 04/04/2018, I placed a laparoscopic PD catheter. She recently because of mobility problems and deteriorating health had to go to the alf, then transitioned back to hemodialysis. The patient's health has deteriorated and it is felt that she is unlikely to be discharged home. I have asked to remove her peritoneal dialysis catheter. There is no evidence of infection currently. The patient, however, is in IMCU confused and on amiodarone drip. Plan will be to remove her peritoneal dialysis catheter at a later time when she is more stable. HABITS: Tobacco, none. Alcohol, none. MEDICATIONS: 1. Renvela. 2. Omeprazole. 3. Levemir insulin. 4. Humulin insulin. 5. Hydrocodone. 6. Gabapentin. 7. Atorvastatin. PAST SURGICAL HISTORY: As outlined above. In addition; 1. Cholecystectomy. 2. Hysterectomy. 3. Left hip ORIF. 4. Mitral valve repair. 5. Cataract removal. 6. Cardiac cath with stenting in the past. 7. Colonoscopy in 2017. 8. Partial colectomy. PAST MEDICAL HISTORY: 1. End-stage renal disease. 2. Diabetes mellitus. 3. Hypertension. 4. AFib. 5. Coronary artery disease. 6. Dyslipidemia. PHYSICAL EXAMINATION: GENERAL: The patient is currently on amiodarone drip. She is slightly confused, but does converse sometimes appropriately, but is slightly confused. VITAL SIGNS: Temperature 97.7 degrees, heart rate 84, and blood pressure 97/78. LUNGS: Coarse rhonchi at the bases and rales throughout. No wheezing. CARDIAC: Regular rate and rhythm. ABDOMEN: Soft, obese. Peritoneal dialysis catheter exiting skin without evidence of infection. ABDOMEN: Soft and nontender. EXTREMITIES: Unremarkable. Right upper arm transposition fistula, functioning well with good thrill and bruit. ASSESSMENT AND PLAN: The patient is hemodialysis dependent now. We would remove her PD catheter when she is more stable. We will plan that for next week. Job ID: [id number]
[2019-04-04] MEDS ORDERED: Norepinephrine 8 MG in Dextrose 5% in Water 242 ML IVPB SCH (15:45)
[2019-04-04 15:49] LABS: Anion Gap 13 mmol/L (10-20); BUN (Urea Nitrogen) 24 mg/dL (9.8-20.1); Calc. Creatinine Clearance 26 mL/min (70-130); Calcium 7.9 mg/dL (7.8-10.44); Carbon Dioxide 31 mmol/L (23-31); Chloride 96 mmol/L (98-107); Estimated GFR-MDRD 12; Glucose 151 mg/dL (80-115); Potassium 3.5 mmol/L (3.5-5.1); Sodium 136 mmol/L (136-145)
--- NOTE | 2019-04-04 15:53 | PRG ---
DATE OF SERVICE: 04/04/2019 SUBJECTIVE: A 64-year-old female, being seen for end-stage renal disease. The patient remains confused. OBJECTIVE: CONSTITUTIONAL: The patient is resting. VITAL SIGNS: Pulse 85, breathing 16, and blood pressure 97/78. GENERAL APPEARANCE AND MENTAL STATUS: Fair. HEAD/NECK: Normocephalic. Atraumatic. EYES: EOMI. No deformity. EARS: Clear. No ulcers. NOSE: Intact. No lesions. MOUTH: Clear. No discharge. THROAT: Clear. No exudate. LUNGS: Clear. No crackles. CARDIAC: S1, S2. No rub. ABDOMEN: Benign. Bowel sounds positive. GENITALIA/RECTUM: Reid absent. BACK/EXTREMITIES: Edema 0+. NEUROLOGICAL: Alert and motor intact. SKIN: LYMPHATICS: ASSESSMENT AND PLAN: 1. Stage 6 chronic kidney disease. Plan dialysis per schedule Tuesday, Tuesday, and Tuesday. 2. Hypertension, stable. 3. Anemia, stable. 4. Medication based on GFR appropriate. Job ID: [id number]
--- NOTE | 2019-04-04 15:53 | CON ---
DATE OF CONSULTATION: 04/03/2019 REASON FOR CONSULTATION: End-stage renal disease, for maintenance hemodialysis. HISTORY OF PRESENT ILLNESS: This is a very pleasant 64-year-old female, presented to the hospital on April 03, for UTI, urosepsis. The patient dialyzes Tuesday, Tuesday, and Tuesday and had missed dialysis. The patient denies nausea, vomiting, or chest pain. PAST MEDICAL HISTORY: Significant for end-stage renal disease, hypertension, atrial fibrillation, coronary artery disease, hyperlipidemia, cholecystectomy, left hip repair, mitral valve replacement, cataract removal, PD catheter, cardiac catheterization, colonoscopy, and hemicolectomy. FAMILY HISTORY: Negative for ESRD. SOCIOECONOMIC HISTORY: No alcohol or drug use. ALLERGIES: REVIEWED. MEDICATIONS: Home medications list, reviewed. REVIEW OF SYSTEMS: Unobtainable due to mental status. PHYSICAL EXAMINATION: GENERAL: The patient is resting. VITAL SIGNS: Afebrile, pulse 65, breathing 16, blood pressure 136/65. GENERAL APPEARANCE AND MENTAL STATUS: Fair. HEAD/NECK: Normocephalic. Atraumatic. EYES: EOMI. No deformity. EARS: Clear. No ulcers. NOSE: Intact. No lesions. MOUTH: Clear. No discharge. THROAT: Clear. No exudate. LUNGS: Clear. No crackles. CARDIAC: S1, S2. No rub. ABDOMEN: Benign. Bowel sounds positive. GENITALIA/RECTUM: Reid absent. BACK/EXTREMITIES: Edema 0+. NEUROLOGICAL: The patient is resting. SKIN: LYMPHATICS: LABORATORY DATA: Show hemoglobin 9.8. Potassium was 3.6. ASSESSMENT AND PLAN: 1. Stage 6 chronic kidney disease. Plan dialysis. 2. Hypertension, stable. 3. Anemia, stable. 4. Medication based on GFR, appropriate. 5. Elevated troponin. Management per primary team. 6. Overall prognosis is poor. 7. PD catheter. We will have that removed when the patient is stable. Job ID: [id number]
[2019-04-04 16:01] LABS: Troponin I 1.195 ng/mL (< 0.028)
[2019-04-04 16:51] LABS: Hemoglobin 8.5 g/dL (12.0-16.0); Mean Corpuscular HGB CONC 31.5 g/dL (32.0-36.0); Mean Corpuscular Hemoglobin 30.7 pg (27.0-31.0); Mean Corpuscular Volume 97.6 fL (78.0-98.0); Mean Platelet Volume 7.8 fL (7.4-10.4); Platelet Count 282 thou/uL (130-400); RBC Distribution Width 16.3 % (11.5-14.5); Red Blood Cell (RBC) Count 2.77 mill/uL (4.20-5.40); White Blood Cell (WBC) Count 12.9 thou/uL (4.8-10.8)
[2019-04-04 16:52] LABS: Band 29 % (5-11); Lymphocytes 4 % (21-51); MDiff Complete? YES; Monocytes 2 % (0-10); Neutrophil 65 % (42-75); Platelet Morphology Comment Appears Adequate
[2019-04-04] MEDS ORDERED: Cefepime 1 GM in Sodium Chloride 0.9% 100 ML IVPB SCH (17:00)
[2019-04-04] MEDS: Cefepime 1 GM in Sodium Chloride 0.9% 100 ML IVPB SCH (17:21)
[2019-04-04] MEDS ORDERED: Vancomycin HCl 1.5 GM in Sodium Chloride 0.9% 250 ML 300 ML IVPB SCH (17:45)
[2019-04-04 18:18] LABS: Vancomycin, Random 21.6 ug/mL (See Comment)
--- NOTE | 2019-04-04 22:32 | PDOC.EVN ---
Event Note - Event Note Event Note: Code rachele was called around 1530 for pt d/t what appeared to be sustained vtach on the monitor with blood pressures 60's systolic. Pt had a pulse and was responsive with nonsensical speech and responded appropriately to touch. Labs were drawn, EKG was performed which showed vtach. We discussed with family who wished to proceed with electrical cardioversion. Due to her hypotension, it was decided to proceed without sedation. Using 100kJ pt was given synchronized which converted her to NSR in 80's. Levophed had not been hung yet so was started at 5mcg/min. Pt BP was taken again was 95/52. Pt was moved to ICU bed for closer monitoring. Addendum - Attending - Attending Attestation Date/Time: 04/05/19 1248 VT vs WC Afib with RVR, regardless was unstable. Converted after first attempt. Any anticoag/invasive mgmt per cardiology. has been consulted. Moved to ICU bed.
[2019-04-05] MEDS: Micafungin 100 MG in Sodium Chloride 0.9% 100 ML IVPB SCH (00:08)
[2019-04-05 05:58] LABS: Anion Gap 14 mmol/L (10-20); BUN (Urea Nitrogen) 27 mg/dL (9.8-20.1); Calc. Creatinine Clearance 23 mL/min (70-130); Calcium 8.1 mg/dL (7.8-10.44); Carbon Dioxide 28 mmol/L (23-31); Chloride 98 mmol/L (98-107); Estimated GFR-MDRD 10; Glucose 146 mg/dL (80-115); Potassium 3.6 mmol/L (3.5-5.1); Sodium 136 mmol/L (136-145)
[2019-04-05 06:14] LABS: Band 11 % (5-11); Eosinophils 1 % (0-10); Hemoglobin 8.3 g/dL (12.0-16.0); Hypochromia SLIGHT = 6-15 cells (100X) (0-5/hpf); Lymphocytes 3 % (21-51); MDiff Complete? YES; Mean Corpuscular Hemoglobin 30.5 pg (27.0-31.0); Mean Corpuscular Volume 98.2 fL (78.0-98.0); Mean Platelet Volume 7.8 fL (7.4-10.4); Monocytes 3 % (0-10); Myelocyte 1 % (0-0); Neutrophil 81 % (42-75); Platelet Count 266 thou/uL (130-400); Platelet Morphology Comment Appears Adequate; Polychromasia SLIGHT = 2-3 cells (100X) (0-2/hpf); RBC Distribution Width 16.6 % (11.5-14.5); Red Blood Cell (RBC) Count 2.74 mill/uL (4.20-5.40); Stomatocytes SLIGHT = 2-5 cells (100X) (0-1/hpf); White Blood Cell (WBC) Count 14.4 thou/uL (4.8-10.8)
--- NOTE | 2019-04-05 06:27 | PDOC.FM ---
- Subjective Subjective: Yesterday Karon jeffrey was called for hypotension and sustained Vtach, she was cardioverted. This morning reports pain all over, per family this is her baseline pain. Family in the room reports improvement from yesterday and the day she was admitted. Pt also reports SOB. - Objective MAR Reviewed: Yes Vital Signs & Weight: Vital Signs (12 hours) Temp 04/05/19 04:00 98.4 F 04/05/19 00:00 98.0 F 04/04/19 20:00 98.6 F Weight Admit Weight 113 kg Weight 110.2 kg Most Recent Monitor Data Heart Rate from ECG 79 NIBP 97/55 NIBP BP-Mean 69 Respiration from ECG 11 SpO2 99 I&O: 04/03/19 04/04/19 04/05/19 06:59 06:59 06:59 Intake Total 350 1470 Output Total 1000 21 Balance -650 1449 Result Diagrams: 04/05/19 05:16 04/05/19 05:16 Phys Exam - Physical Examination Constitutional: NAD oriented to person and place HEENT: moist MMs Neck: supple upper airway noises, some bilateral crackles Cardiovascular: RRR Gastrointestinal: soft, non-tender 2+ pitting edema left hand, 1+ pitting edema bilateral LE and right hand Neurological: moves all 4 limbs Deviation from normal: Right posterior left leg wound appears to be healing. Dx/Plan - Plan Plan: 64yo F being admitted for sepsis 2/2 UTI, NSTEMI, transferred to ICU for sustained wide complex Vtach Sepsis - Hypotensive overnight, started on levophed. Currently at 5 - Blood cx NGTD and urine cultures pending. - Continue with Micafungin, Cefepime and Vancomycin. - Procal 2.05 Wide Complex Vtach s/p cardioversion - Currently in NSR with rate in 80s - Cardiology consulted, apprec recs - Continue Amiodarone NSTEMI - In sinus rhythm s/p cardioversion for ventricular tachycardia. - Cardiology consulted, appreciate recs. - holding anticoagulation at this time due to reported GI bleeding. UTI - Urine culture with yeast, continue Micafungin, Vanc and Cefepime. ESRD on HD - Piano Teacher, Dr. Laina kidd. Appreciate recs - Avoid nephrotoxic agents and monitor kidney function with daily labs Encephalopathy likely 2/2 infection - Mental status improving - Geodon PRN for agitation. GI Bleeding - Reported by EMS and intermediate. No active bleeding. H/H stable - FOBT ordered - EGD/Colonoscopy 2016 negative with diverticulosis. - Continue PPI DM II - SSI. Accuchecks q4H - Hypoglycemic protocol Chronic wounds - Wound care consulted Lines/Tubes: right IJ, 2 peripheral IVs Code status: DNR-DNI GI prophylaxis: Protonix Addendum - Attending - Attending Attestation Date/Time: 04/05/19 4407 I personally evaluated the patient and discussed the management with Dr. Mohamud I agree with the History, Examination, Assessment and Plan documented above with any addition or exceptions noted below. Patient and family aware of severity of illness patient still needing pressor to maintain BP. Not able to remove any fluid off with HD note transferred to ICU with hypotension and wide complex tachycardia requiring DC cardioversion and appreciate Cardiology input.
--- NOTE | 2019-04-05 08:36 | CON ---
DATE OF CONSULTATION: 04/04/2019 HISTORY OF PRESENT ILLNESS: Ms. Bocanegra is a very pleasant 64-year-old diabetic with end-stage renal disease 7 years according to her sister. Her sister says she does have a history of getting confused whenever she gets an infection, but not infected or does not have anything that would lead to decompensation. She does great and is neurologically intact as far as her interaction with family. Apparently, she started getting confused on Tuesday according to family and missed dialysis. She showed up for dialysis Tuesday. I am told by the family (they thought it was on Tuesday) that they did not have a sling to get her to a dialysis chair, so they sent her back to the care home. She has now been admitted to the critical care unit. We talked to Dr. Marina and he was actually not aware that this had happened. Apparently, the dialysis center did not contact him when they were Ms. Bocanegra back up to go to the care home in spite of her having this dialysis Tuesday. Unable to give a history, she says yes to everything at this time. She did have a rapid wide-complex tachycardia earlier today for which she was cardioverted, but I am told that this was aberrantly conducted atrial fibrillation. drip. PAST MEDICAL HISTORY: Remarkable for: 1. End-stage renal disease . 2. Chronically indwelling peritoneal dialysis catheter . 3. Cholecystectomy. 4. Status post hysterectomy. 5. Left hip surgical fixation. 6. Mitral valve repair. 7. Cataract surgery. 8. Cardiac cath with stenting in the past. 9. Colonoscopy and a partial colectomy. 10. Hypertension. 11. Lipid disorder. FAMILY HISTORY: Negative for SOCIAL HISTORY: nonsmoker, nondrinker. ALLERGIES: SHE REPORTS MULTIPLE ALLERGIES. PHYSICAL EXAMINATION: VITAL SIGNS: Heart rate 85, respiratory rate 16, she is on a tiny dose of Levophed. Her oximetry is 99. GENERAL: Does not make eye contact. HEENT: She has anicteric sclerae. Extraocular movements appear full, but she looks away when I was talking to her. NECK: Supple. LUNGS: Clear. HEART: Regular rhythm. S1 and S2 are normal. There is grade 2/6 systolic murmur. ABDOMEN: Soft and nontender. EXTREMITIES: . NEUROLOGICAL: Grossly nonfocal. IMAGING STUDIES: Chest radiograph shows no infiltrates. Blood cultures both done from external jugular vein catheters are negative . IMPRESSION: 1. Encephalopathy unclear triggering event. 2. Wide-complex tachycardia that maybe aberrantly conducted atrial fibrillation. Family is very reasonable. I had a long talk with her sister and the niece, they both appreciative of the care given and they are hoping she will get back to her baseline mental status. Nothing that I can identify so far that is clearly the source of infection, but her peritoneal dialysis catheter certainly could be. 3. Nephrology. Job ID: [id number] MTDD
[2019-04-05] MEDS: Amiodarone 450 MG, Admixture Fee 1 EACH in Dextrose 5% in Water 250 ML IVPB SCH ×2 (12:02→20:13)
--- NOTE | 2019-04-05 12:10 | PQF ---
ELLI EUBANKSSUSI [id number] CLINICAL DOCUMENTATION IMPROVEMENT CLARIFICATION FORM: ICD-10 Updated PLEASE DO AN ADDENDUM TO THE PROGRESS NOTE WITH ANY DOCUMENTATION UPDATES OR ADDITIONS AND CARRY THROUGH TO DC SUMMARY. THANK YOU. DATE: 04/05/19 ATTN: Dr. Mohamud Please exercise your independent, professional judgment in responding to the clarification form. Clinical indicators are provided on the bottom of this form for your review Please check appropriate box(s): [ x] Septic Shock [ ] Cardiogenic Shock [ ] Other Shock due to [ ] Shock Unspecified [ ] Other diagnosis [ ] Unable to determine In addition, please specify: Present on Admission (POA): [ ] Yes [ ] No [x ] Unable to determine For continuity of documentation, please document condition throughout progress notes and discharge summary. Thank You. CLINICAL INDICATORS - SIGNS / SYMPTOMS / LABS / RESULTS AND LOCATION IN 04/03 Stiven: "sustained vtach. BP 95/52. hypotension." AMS, Obtunded--> 04/04 : "encephalopathy unclear triggering event." RISK FACTORS / RESULTS AND LOCATION IN 04/03 H&P(Cro)- "Sepsis", "UTI" "NSTEMI" per 04/03 H&P([facility]) TREATMENTS / RESULTS AND LOCATION IN CCU 04/03 per orders Vasopressors--> 04/04 Levophed drip per orders Fluid resuscitation--> 1 liter NS bolus 04/03 per orders IV Antibiotics--> 04/03 rocephin 1 gm iv, vanc 2gm in ED; 04/03 cefepime 2gm to 04/04 cefepime 1gm iv; vanc1.5 gm; micafungin 100mg iv 04/04 to date per orders (This form is maintained as a part of the permanent medical record) 2014 [employer]. All Rights Reserved Linda Cortez RN, BSN, CCDS [email or web address]
--- NOTE | 2019-04-05 12:12 | PQF ---
ELLI EUBANKSSUSI [id number] [facility] A12 [id number] CLINICAL DOCUMENTATION IMPROVEMENT CLARIFICATION FORM: ICD-10 Updated PLEASE DO AN ADDENDUM TO THE PROGRESS NOTE WITH ANY DOCUMENTATION UPDATES OR ADDITIONS AND CARRY THROUGH TO DC SUMMARY. THANK YOU. DATE: 04/05/19 ATTN: Dr. Mohamud Please exercise your independent, professional judgment in responding to the clarification form. Clinical indicators are provided on the bottom of this form for your review Please check appropriate box(s): [x] Encephalopathy: Type: [x] Acute [ ] Subacute [ ] Chronic Etiology: [ ] Metabolic [x] Septic [ ] due to shock [ ] Unspecified [ ] in the setting of underlying dementia [ ] Other (please specify) [ ] Transient Alteration of Awareness [ ] Other diagnosis [ ] Unable to determine In addition, please specify: Present on Admission (POA): [x] Yes [ ] No [ ] Unable to determine For continuity of documentation, please document condition throughout progress notes and discharge summary. Thank You. CLINICAL INDICATORS - SIGNS / SYMPTOMS / LABS / RESULTS AND LOCATION IN 04/03 UA: large leuk est, wbc >50 04/03 Stiven: "sustained vtach. BP 95/52. hypotension." AMS, Obtunded--> 04/04 : "encephalopathy unclear triggering event." RISK FACTORS / RESULTS AND LOCATION IN 04/03 H&P(Cro)- "Sepsis", "UTI" "NSTEMI" per 04/03 H&P([facility]) TREATMENTS / RESULTS AND LOCATION IN CCU 04/03 per orders Vasopressors--> 04/04 Levophed drip per orders Fluid resuscitation--> 1 liter NS bolus 04/03 per orders IV Antibiotics--> 04/03 rocephin 1 gm iv, vanc 2gm in ED; 04/03 cefepime 2gm to 04/04 cefepime 1gm iv; vanc1.5 gm; micafungin 100mg iv 04/04 to date per orders (This form is maintained as a part of the permanent medical record) 2014 [employer]. All Rights Reserved Linda Cortez RN, BSN, CCDS [email or web address] [phone] LISHA
--- NOTE | 2019-04-05 12:38 | RAD ---
Chest one view HISTORY: Dyspnea. Follow-up. COMPARISON: 04/04/2019. FINDINGS: Cardiac silhouette is magnified and enlarged. Pulmonary vasculature remains slightly engorg ed and accentuated by shallow inspiration. Small amount of pleural fluid in the right minor fissure. Mediastinum is midline with postoperative changes, multi lead left subclavian cardiac electronic margaret ce, and right internal jugular central venous catheter. No lobar consolidation or evidence of pneumothorax. flat machine cutter leads overlie the chest. IMPRESSION: Pulmonary vascular congestion and other findings are stable.
--- NOTE | 2019-04-05 13:41 | PRG ---
DATE OF SERVICE: 04/05/2019 SUBJECTIVE: This is a 64-year-old female, being seen for end-stage kidney disease. The patient denied nausea, vomiting, or chest pain. OBJECTIVE: GENERAL: On examination, the patient is awake and alert. VITAL SIGNS: Afebrile. Pulse 75, breathing 16, blood pressure was 120/60. GENERAL APPEARANCE AND MENTAL STATUS: Fair. HEAD/NECK: Normocephalic. Atraumatic. EYES: EOMI. No deformity. EARS: Clear. No ulcers. NOSE: Intact. No lesions. MOUTH: Clear. No discharge. THROAT: Clear. No exudate. LUNGS: Clear. No crackles. CARDIAC: S1, S2. No rub. ABDOMEN: Benign. Bowel sounds positive. GENITALIA/RECTUM: Reid absent. BACK/EXTREMITIES: Edema 0+. NEUROLOGICAL: Alert and motor intact. SKIN: LYMPHATICS: NEUROLOGIC: The patient is resting. LABORATORY DATA: Reviewed. ASSESSMENT AND PLAN: 1. Stage 3 chronic kidney disease. Plan dialysis today. 2. Hypertension, stable. 3. Anemia, stable. 4. Medication based on GFR appropriate. Job ID: [id number]
[2019-04-05 16:49] LABS: Vancomycin, Trough 16.1 ug/mL
[2019-04-05] MEDS ORDERED: Lidocaine 2% PF 100 mg/5 ml Syringe ONE (19:26)
[2019-04-05] MEDS ORDERED: Lidocaine 2 gm/D5W 500 ml 500 ML ONE (19:26)
[2019-04-05] MEDS ORDERED: D5W IVPB SCH (19:45)
[2019-04-05] MEDS ORDERED: LIDOCAINE IVPB SCH (19:45)
[2019-04-05] MEDS ORDERED: Lidocaine 2 gm/D5W 500 ml 500 ML IVPB SCH (19:45)
[2019-04-05] MEDS: Cefepime 1 GM in Sodium Chloride 0.9% 100 ML IVPB SCH (20:04)
--- NOTE | 2019-04-05 21:28 | EKG ---
Test Reason : STAT Blood Pressure : / mmHG Vent. Rate : 154 BPM Atrial Rate : 038 BPM P-R Int : 000 ms QRS Dur : 166 ms QT Int : 362 ms P-R-T Axes : 000 159 -12 degrees QTc Int : 579 ms Wide QRS tachycardia Right bundle branch block Septal infarct , age undetermined Abnormal ECG When compared with ECG of 24-DEC-2016 12:54, Wide QRS tachycardia has replaced Wide QRS rhythm Vent. rate has increased BY 102 BPM Confirmed by Mary SINGH ([id number]) on 04/05/2019 9:27:33 PM Referred By: TRINIDAD Confirmed By:Mary SINGH
--- NOTE | 2019-04-05 21:28 | EKG ---
Test Reason : STAT Blood Pressure : / mmHG Vent. Rate : 084 BPM Atrial Rate : 083 BPM P-R Int : 000 ms QRS Dur : 162 ms QT Int : 448 ms P-R-T Axes : 000 156 126 degrees QTc Int : 529 ms Wide QRS rhythm Right bundle branch block Abnormal ECG When compared with ECG of 03-APR-2019 20:12, (Unconfirmed) Wide QRS rhythm has replaced Wide QRS tachycardia Vent. rate has decreased BY 70 BPM Confirmed by Mary SINGH ([id number]) on 04/05/2019 9:27:58 PM Referred By: TRINIDAD Confirmed By:Mary SINGH
[2019-04-06] MEDS: Micafungin 100 MG in Sodium Chloride 0.9% 100 ML IVPB SCH (00:54)
[2019-04-06 05:03] LABS: #Eosinphils 0.1 thou/uL (0.0-0.7); #Lymphocytes 0.5 thou/uL (1.20-3.40); #Monocytes 0.3 thou/uL (0.11-0.59); #Neutrophils 13.6 thou/uL (1.40-6.50); %Basophils 0.2 % (0.0-1.0); %Eosinophils 0.4 % (0.0-10.0); %Lymphocytes 3.7 % (21.0-51.0); %Monocytes 1.9 % (0.0-10.0); %Neutrophils 93.8 % (42.0-75.0); Hemoglobin 8.6 g/dL (12.0-16.0); Mean Corpuscular Hemoglobin 30.1 pg (27.0-31.0); Mean Corpuscular Volume 96.9 fL (78.0-98.0); Mean Platelet Volume 7.7 fL (7.4-10.4); Platelet Count 255 thou/uL (130-400); RBC Distribution Width 16.9 % (11.5-14.5); Red Blood Cell (RBC) Count 2.87 mill/uL (4.20-5.40); White Blood Cell (WBC) Count 14.5 thou/uL (4.8-10.8)
[2019-04-06 05:21] LABS: Anion Gap 15 mmol/L (10-20); BUN (Urea Nitrogen) 14 mg/dL (9.8-20.1); Calc. Creatinine Clearance 37 mL/min (70-130); Calcium 7.7 mg/dL (7.8-10.44); Carbon Dioxide 28 mmol/L (23-31); Chloride 96 mmol/L (98-107); Estimated GFR-MDRD 18; Glucose 196 mg/dL (80-115); Potassium 3.8 mmol/L (3.5-5.1); Sodium 135 mmol/L (136-145)
[2019-04-06] MEDS ORDERED: Polyethylene Glycol 3350 17 GM Packet PO PRN (06:19)
--- NOTE | 2019-04-06 06:20 | PDOC.FM ---
- Subjective Subjective: Overnight had run of Vtach with spontaneous resolution. Pt asymptomatic during this time. She is resting this morning. - Objective MAR Reviewed: Yes Vital Signs & Weight: Vital Signs (12 hours) Temp Pulse Ox 04/06/19 00:43 96 04/06/19 00:00 98.0 F 04/05/19 20:00 98.2 F 98 Weight Admit Weight 113 kg Weight 110.2 kg Most Recent Monitor Data Heart Rate from ECG 80 NIBP 98/58 NIBP BP-Mean 71 Respiration from ECG 16 SpO2 95 I&O: 04/04/19 04/05/19 04/06/19 06:59 06:59 06:59 Intake Total 350 1470 568 Output Total 1000 21 20 Balance -650 1449 548 Result Diagrams: 04/07/19 03:32 04/07/19 03:32 Phys Exam - Physical Examination Constitutional: NAD HEENT: moist MMs Neck: supple Respiratory: no wheezing, clear to auscultation bilateral Gastrointestinal: soft Neurological: moves all 4 limbs Deviation from normal: wound right posterior LE, covered with dressing Dx/Plan - Plan Plan: 64yo F being admitted for sepsis 2/2 UTI, NSTEMI type 2, transferred to ICU for sustained wide complex Vtach and Hypotension requiring pressors Septic Shock 2/2 UTI - Hypotensive overnight, started on levophed. Currently at 8. Will start steroids. - Blood cx, central line cx NGTD, urine culture with yeast. No signs of infection around IV sites. - Continue with Micafungin, Cefepime and Vancomycin. - Procal 2.05 Wide Complex Vtach s/p cardioversion - Currently in NSR with rate in 80s - Cardiology consulted, apprec recs - Continue Amiodarone 1mg/min and Lidocaine 2mg/min NSTEMI type 2 - Indeterminate trops with cardiac arrhythmias with known hx of cardiac disease - No lovenox due to GI bleed - Cardiology consulted, appreciate recs. UTI - Urine culture with yeast, continue Micafungin, Vanc and Cefepime. ESRD on HD - Presto Log Operator, Dr. Laina kidd. Appreciate recs - Avoid nephrotoxic agents and monitor kidney function with daily labs Encephalopathy 2/2 Septic Shock - Mental status improving - Geodon PRN for agitation GI Bleeding - Reported by EMS and longterm. H/H stable - FOBT ordered - EGD/Colonoscopy 2017 negative with diverticulosis. - Continue PPI DM II - SSI. Accuchecks q4H - Hypoglycemic protocol Chronic wounds - Wound care consulted CAD s/p stents - Stamping Operator is Dr Orozco Hx of Afib - Holding Eliquis for GI bleeding. H&H stable at 8.6 Hx of Mitral Valve repair Lines/Tubes: right IJ, 2 peripheral IVs Code status: DNR-DNI GI prophylaxis: Protonix Addendum - Attending - Attending Attestation Date/Time: 04/07/19 6945 I personally evaluated the patient and discussed the management with Dr. Mohamud I agree with the History, Examination, Assessment and Plan documented above with any addition or exceptions noted below. Appreciate Critical care , Cardiology and nephrology recommendation taper off levophed and lidocaine de- escalate antibiotics. Will avoid morphine with ESRD and trial hydromorphone low dose hopefully will control pain air hunger and not drop BP excessively. Scopalamine patch controlling secretions. Patient family requesting trial of feeding start dophoff trial. Discussed moth exterminator prognosis remains guarded.
[2019-04-06 07:45] LABS: Vancomycin, Random 18.9 ug/mL (See Comment)
--- NOTE | 2019-04-06 10:30 | PRG ---
DATE OF SERVICE: 04/06/2019 SUBJECTIVE: This is a 64-year-old female, being seen for end-stage renal disease. The patient is resting. OBJECTIVE: See above. Awake, alert, in no acute distress. She is resting. VITAL SIGNS: Afebrile, pulse is 71, breathing is 16, blood pressure 96/47. GENERAL APPEARANCE AND MENTAL STATUS: Fair. HEAD/NECK: Normocephalic. Atraumatic. EYES: EOMI. No deformity. EARS: Clear. No ulcers. NOSE: Intact. No lesions. MOUTH: Clear. No discharge. THROAT: Clear. No exudate. LUNGS: Clear. No crackles. CARDIAC: S1, S2. No rub. ABDOMEN: Benign. Bowel sounds positive. GENITALIA/RECTUM: Reid absent. BACK/EXTREMITIES: Edema 2+. NEUROLOGICAL: Resting LABORATORY DATA: Reviewed. ASSESSMENT AND PLAN: 1. Stage 6 chronic kidney disease. BP low no indication for dialysis on pressors. 2. Hypertension, stable. 3. Anemia, stable. 4. PD catheter, we will remove that. 5. Cardiorenal syndrome, management per Primary Team. Overall prognosis is poor. Job ID: [id number] [facility]
[2019-04-06] MEDS: Hydrocortisone Sod Succ/PF 100 mg/2 ml Vial IVP SCH ×3 (10:59→20:56)
[2019-04-06] MEDS: Scopolamine 1.5 mg/72 hour Patch TD SCH (10:59)
[2019-04-06] MEDS ORDERED: Pantoprazole 40 MG VIAL IVP SCH (11:00)
[2019-04-06 12:31] VITALS: BMI 38.0
[2019-04-06] MEDS: Morphine 4 MG/ML VIAL SLOW IVP PRN ×3 (13:14→20:56)
[2019-04-06] MEDS: Amiodarone 450 MG, Admixture Fee 1 EACH in Dextrose 5% in Water 250 ML IVPB SCH ×2 (13:15→21:07)
--- NOTE | 2019-04-06 15:50 | CON ---
DATE OF CONSULTATION: REQUESTING PHYSICIAN: Ravindra Lemos MD. REASON FOR CONSULTATION: Arrhythmia management. HISTORY OF PRESENT ILLNESS: This is a 64-year-old woman, who is currently in the ICU. She has a long cardiac history. She also has a history of atrial arrhythmias, atrial fibrillation, mitral valve repair, coronary artery disease, and a permanent pacemaker. She has end-stage renal disease. She presented to the emergency room with altered mental status and is currently unable to give any history. While on the color television console monitor, she was noted to have elevated heart rate. She has a baseline right bundle-branch block and is having some wide-complex tachycardia at the current time. She has a permanent pacemaker in situ. We were asked to see her for evaluation. She is currently on amiodarone and lidocaine drips. PAST MEDICAL HISTORY: Significant for; 1. Coronary artery disease. 2. Atrial fibrillation. 3. Mitral valve replacement. 4. Pacemaker implantation. PAST SURGICAL HISTORY: Significant for; 1. Mitral valve repair. 2. AV fistula. 3. Hysterectomy. 4. Cholecystectomy. SOCIAL HISTORY: She is a nonsmoker. CURRENT MEDICATIONS: Include; 1. Amiodarone. 2. Lidocaine. 3. Cefepime. 4. Famotidine. 5. Glucagon. 6. Insulin. 7. Morphine. 8. Vancomycin. SOCIAL HISTORY: Unable to obtain. FAMILY HISTORY: Unable to obtain. REVIEW OF SYSTEMS: Comprehensive review of systems, unable to obtain. PHYSICAL EXAMINATION: GENERAL: She is sleeping, not responsive. VITAL SIGNS: Blood pressure is 120/60, heart rate is 80 and regular, she is paced. NECK: No increased JVP. HEART: Regular rate. Normal S1 and S2. LUNGS: She has loud rhonchi. ABDOMEN: Soft and nontender. EXTREMITIES: No clubbing or cyanosis. She does have some edema. DIAGNOSTIC STUDIES: A 12-lead ECG shows atrial fibrillation with a right bundle-branch block with occasional ventricular pacing. We have asked to have her pacemaker checked and it shows frequent episodes of arrhythmia that appeared to be consistent with atrial arrhythmias or atrial tachycardia or possibly AV aniya reentrant tachycardia as well. There is no clear ventricular arrhythmias, although some of the arrhythmias that she is having fall underneath the detection zone of the device. IMPRESSION: End-stage renal disease in an obtunded female with significant medical problems, who is having atrial arrhythmias. RECOMMENDATIONS: At the current time, I think continuing amiodarone is reasonable on her as this will help control some of these atrial arrhythmias. It may be reasonable to consider backing off on the lidocaine and ultimately discontinuing it. I do not know whether some of the arrhythmia is having a lower rates, maybe slow ventricular tachycardia versus atrial rhythms, which is all we are seeing on the pacemaker at the current time, but I believe this medication could potentially be weaned. I would recommend weaning the lidocaine and continuing her on amiodarone. Amiodarone boluses may be given as well if necessary. Job ID: [id number]
[2019-04-06] MEDS: Cefepime 1 GM in Sodium Chloride 0.9% 100 ML IVPB SCH (17:21)
[2019-04-06] MEDS ORDERED: Norepinephrine 8 MG in Dextrose 5% in Water 242 ML IVPB SCH (17:30)
--- NOTE | 2019-04-06 17:44 | EKG ---
Test Reason : CODE GREEN Blood Pressure : / mmHG Vent. Rate : 142 BPM Atrial Rate : 119 BPM P-R Int : 000 ms QRS Dur : 162 ms QT Int : 292 ms P-R-T Axes : 000 158 -24 degrees QTc Int : 449 ms Suspect arm lead reversal, interpretation assumes no reversal Suspect unspecified pacemaker failure Atrial fibrillation Right bundle branch block Septal infarct , age undetermined Lateral infarct , age undetermined Abnormal ECG When compared with ECG of 03-APR-2019 20:15, Current undetermined rhythm precludes rhythm comparison, needs review Confirmed by Mary SINGH ([id number]) on 04/06/2019 5:44:26 PM Referred By: TRINIDAD Confirmed By:Mary SINGH
--- NOTE | 2019-04-06 17:57 | EKG ---
Test Reason : STAT Blood Pressure : / mmHG Vent. Rate : 091 BPM Atrial Rate : 090 BPM P-R Int : 000 ms QRS Dur : 148 ms QT Int : 382 ms P-R-T Axes : 000 159 045 degrees QTc Int : 469 ms Atrial fibrillation Right bundle branch block Septal infarct (cited on or before 04-APR-2019) Abnormal ECG When compared with ECG of 04-APR-2019 15:35, (Unconfirmed) Previous ECG has undetermined rhythm, needs review Questionable change in initial forces of Septal leads Nonspecific T wave abnormality has replaced inverted T waves in Inferior leads Confirmed by Mary SINGH ([id number]) on 04/06/2019 5:57:34 PM Referred By: Confirmed By:Mary SINGH
[2019-04-06] MEDS: Famotidine/PF 20 mg/2ml Vial SLOW IVP SCH (20:55)
[2019-04-07] MEDS: Hydrocortisone Sod Succ/PF 100 mg/2 ml Vial IVP SCH ×4 (03:34→22:24)
[2019-04-07] MEDS: Morphine 4 MG/ML VIAL SLOW IVP PRN ×6 (03:34→23:46)
[2019-04-07 03:47] LABS: #Lymphocytes 0.5 thou/uL (1.20-3.40); #Monocytes 0.2 thou/uL (0.11-0.59); #Neutrophils 8.6 thou/uL (1.40-6.50); %Basophils 0.2 % (0.0-1.0); %Lymphocytes 5.1 % (21.0-51.0); %Monocytes 1.7 % (0.0-10.0); Hemoglobin 8.3 g/dL (12.0-16.0); Mean Corpuscular HGB CONC 30.9 g/dL (32.0-36.0); Mean Corpuscular Hemoglobin 30.2 pg (27.0-31.0); Mean Corpuscular Volume 97.7 fL (78.0-98.0); Mean Platelet Volume 7.8 fL (7.4-10.4); Platelet Count 183 thou/uL (130-400); RBC Distribution Width 16.7 % (11.5-14.5); Red Blood Cell (RBC) Count 2.74 mill/uL (4.20-5.40); White Blood Cell (WBC) Count 9.2 thou/uL (4.8-10.8)
[2019-04-07 04:05] LABS: Anion Gap 12 mmol/L (10-20); BUN (Urea Nitrogen) 17 mg/dL (9.8-20.1); Calc. Creatinine Clearance 30 mL/min (70-130); Calcium 7.7 mg/dL (7.8-10.44); Carbon Dioxide 29 mmol/L (23-31); Chloride 97 mmol/L (98-107); Estimated GFR-MDRD 14; Glucose 207 mg/dL (80-115); Potassium 4.2 mmol/L (3.5-5.1); Sodium 134 mmol/L (136-145)
[2019-04-07] MEDS: Amiodarone 450 MG, Admixture Fee 1 EACH in Dextrose 5% in Water 250 ML IVPB SCH ×3 (05:47→22:24)
[2019-04-07] MEDS: HumaLOG 300 UNITS/3 ML VIAL SC PRN ×2 (05:48→11:49)
--- NOTE | 2019-04-07 05:49 | PDOC.FM ---
- Subjective Subjective: No overnight events. Continues to do poorly. Lidocaine was stopped yesterday and she remains on Levophed a 1. Has been receiving morphine however this causes her BP to drop requiring increase in Levophed. - Objective MAR Reviewed: Yes Vital Signs & Weight: Vital Signs (12 hours) Temp Pulse Ox 04/07/19 04:24 98 04/07/19 04:00 99.2 F 04/07/19 00:00 98.5 F 04/06/19 20:00 98.4 F 04/06/19 19:35 97 04/06/19 19:03 96 Weight Admit Weight 113 kg Weight 110 kg Most Recent Monitor Data Heart Rate from ECG 72 NIBP 108/49 NIBP BP-Mean 68 Respiration from ECG 11 SpO2 94 I&O: 04/05/19 04/06/19 04/07/19 06:59 06:59 06:59 Intake Total 1470 1744 686 Output Total 21 20 110 Balance 1449 1724 576 Result Diagrams: 04/08/19 04:00 04/08/19 03:55 Phys Exam - Physical Examination Constitutional: NAD Diffuse crackles RRR with S3 Gastrointestinal: soft mild tenderness with no rigidity or rebound 1+ pitting edema, Left UE and b/l LE Does not follow simple commands, 0/5 UE and LE movement Deviation from normal: Lethargic Dx/Plan - Plan Plan: 64yo F being admitted for sepsis 2/2 UTI, NSTEMI type 2, transferred to ICU for sustained wide complex Vtach and Hypotension requiring pressors Septic Shock - Continue levophed. Currently at 8. Continue steroids - Blood cx, central line cx NGTD, urine culture with yeast, likely colonized - Continue with Cefepime and Vancomycin. Remove cuellar - Will switch Morphine to Dilaudid due to ESRD Dysrhythmias - Wide complex Vtach x3 s/p cardioversion x3 - Cardiology consulted, apprec recs - Continue Amiodarone 1mg/min. Lidocaine has been d/c'ed NSTEMI type 2 - Indeterminate trops with cardiac arrhythmias with known hx of cardiac disease - No lovenox due to GI bleed - Cardiology consulted, appreciate recs. ESRD on HD - Mail Forwarding System Markup Clerk, Dr. Marina following. Appreciate recs - Avoid nephrotoxic agents and monitor kidney function with daily labs Encephalopathy 2/2 Septic Shock - Worse yesterday, obtunded. Scopolamine added for secretions GI Bleeding - Reported by EMS and fpc. H/H stable - FOBT ordered - EGD/Colonoscopy 2017 negative with diverticulosis. - Continue PPI DM II - SSI. Accuchecks q4H - Hypoglycemic protocol Chronic wounds - Wound care consulted CAD s/p stents - Freight Forwarder is Dr Orozco Hx of Afib - Holding Eliquis for GI bleeding. H&H stable Hx of Mitral Valve repair Lines/Tubes: right IJ, 2 peripheral IVs Code status: DNR-DNI GI prophylaxis: Protonix Dispo: Poor prognosis, had detailed conversation with daughter how based on pts progress this hospitalization she very well may not survive hospitalization. Pts daughter who is her decision maker did not wish to pursue any more shocks to heart if it were to come to that, including cardioversion. Addendum - Attending - Attending Attestation Date/Time: 04/08/19 2318 I personally evaluated the patient and discussed the management with Dr. Mohamud I agree with the History, Examination, Assessment and Plan documented above with any addition or exceptions noted below. Patient prognosis remains guarded discussed consideration of hospice with family could evaluate for placement Inpatient facility. Family aware of our concern can transfer out ICCU if off levophed.
[2019-04-07] MEDS: Famotidine/PF 20 mg/2ml Vial SLOW IVP SCH ×2 (08:55→20:00)
[2019-04-07] MEDS ORDERED: Pantoprazole 40 MG VIAL IVP SCH (09:00)
--- NOTE | 2019-04-07 13:23 | RAD ---
EXAM: Single view of the abdomen HISTORY: Dobbhoff tube placement COMPARISON: None FINDINGS: Single view of the abdomen shows a nonspecific, nonobstructive bowel gas pattern. A Dobbhof f tube is seen with its tip in the region of the pylorus. No suspicious calcifications are seen. Hardware is seen in the lumbar spine and left hip. IMPRESSION: Dobbhoff tube located in the distal stomach/proximal duodenum.
[2019-04-07] MEDS ORDERED: Fluconazole In NaCl,Iso-Osm 200 MG in Premix Bag 1 BAG IVPB SCH (13:30)
--- NOTE | 2019-04-07 13:32 | PRG ---
DATE OF SERVICE: 04/07/2019 SUBJECTIVE: A 64-year-old female, being seen for end-stage renal disease. The patient is nonresponsive. OBJECTIVE: CONSTITUTIONAL: The patient is resting. VITAL SIGNS: Afebrile. Pulse 79. Breathing 16. Blood pressure 110/49. GENERAL APPEARANCE AND MENTAL STATUS: Fair. HEAD/NECK: Normocephalic. Atraumatic. EYES: EOMI. No deformity. EARS: Clear. No ulcers. NOSE: Intact. No lesions. MOUTH: Clear. No discharge. THROAT: Clear. No exudate. LUNGS: Clear. No crackles. CARDIAC: S1, S2. No rub. ABDOMEN: Benign. Bowel sounds positive. GENITALIA/RECTUM: Reid absent. BACK/EXTREMITIES: Edema 0+. NEUROLOGICAL: The patient is resting. SKIN: LYMPHATICS: LABORATORY DATA: Show hemoglobin 8.3. Creatinine 3.2. ASSESSMENT AND PLAN: 1. Stage 6 chronic kidney disease. No indication for dialysis. 2. Hypertension, stable. 3. Anemia, stable. 4. Overall, prognosis is poor. Job ID: [id number]
--- NOTE | 2019-04-07 14:03 | PRG ---
DATE OF SERVICE: 04/07/2019 SERVICE: Pulmonary Medicine. INTERVAL HISTORY: The patient is doing fairly poorly from mentation standpoint. She is able to take a breath, and moaned. She can follow some very simple commands, but currently, she is not really verbal. There were no significant overnight events. Otherwise, there has been no interval change to her condition. PHYSICAL EXAMINATION: VITAL SIGNS: Afebrile. Pulse 71, blood pressure 110/49, respirations 22, and saturation 97%, currently on 3 L nasal cannula. GENERAL: The patient is awake and alert, in no apparent distress. HEENT: Normocephalic and atraumatic. Sclerae are white. Conjunctivae are pink. Oral mucosa is extremely dry. LUNGS: Decent air entry. There is no significant rhonchi or prolonged expiratory phase present. No wheezing is appreciated. HEART: Normal rate. Regular. ABDOMEN: Soft. Tender to palpation throughout. Bowel sounds are hypoactive. : No Reid catheter is in place. NEUROLOGIC: Grossly nonfocal. She demonstrates profound weakness throughout. LABORATORY DATA: WBC 9.2, hemoglobin 8.3, and platelets 183,000. Sodium 134. Creatinine 3.24. Basic metabolic profile is otherwise unremarkable. Calcium 7.7. Leukocyte esterase is large, nitrites are negative. She has significant proteinuria present. Alcohol is unremarkable. Vancomycin trough 18.9. Reid is growing yeast species. IMAGING: Abdominal x-ray demonstrates interval placement of a small-bore feeding tube. Chest x-ray demonstrates low lung volumes. Large cardiac silhouette. Right IJ central venous catheter is in good position. Multiple wires overlie the chest. There is a pacemaker/AICD in place. No obvious effusions are noted. ASSESSMENT: 1. Metabolic encephalopathy. 2. End-stage renal disease. 3. Atrial fibrillation with RVR and aberrancy, rate controlled. 4. Acute blood loss anemia. DISCUSSION AND PLAN: This patient remains critically ill. Because of her multiple comorbidities, it is very likely that she is at the end of her life. Final disposition with hospice would be perfectly appropriate. Supportive care will be continued including empiric antibiotics. Because the yeast is in the urine and she has persisting good urine output, we can give her a brief course of antifungal agents. Pulmonary/Critical Care will continue to follow along while she remains in-house. Job ID: [id number]
[2019-04-07] MEDS: Cefepime 1 GM in Sodium Chloride 0.9% 100 ML IVPB SCH (17:26)
[2019-04-08] MEDS: HumaLOG 300 UNITS/3 ML VIAL SC PRN ×5 (01:57→20:43)
[2019-04-08] MEDS: Hydrocortisone Sod Succ/PF 100 mg/2 ml Vial IVP SCH ×4 (03:59→21:42)
[2019-04-08] MEDS: Morphine 4 MG/ML VIAL SLOW IVP PRN (04:06)
[2019-04-08 04:47] LABS: #Lymphocytes 0.4 thou/uL (1.20-3.40); #Monocytes 0.3 thou/uL (0.11-0.59); #Neutrophils 11.6 thou/uL (1.40-6.50); %Basophils 0.1 % (0.0-1.0); %Eosinophils 0.1 % (0.0-10.0); %Lymphocytes 3.2 % (21.0-51.0); %Monocytes 2.5 % (0.0-10.0); %Neutrophils 94.1 % (42.0-75.0); Hemoglobin 8.2 g/dL (12.0-16.0); Mean Corpuscular HGB CONC 31.1 g/dL (32.0-36.0); Mean Corpuscular Hemoglobin 30.8 pg (27.0-31.0); Mean Platelet Volume 8.2 fL (7.4-10.4); Platelet Count 178 thou/uL (130-400); RBC Distribution Width 17.1 % (11.5-14.5); Red Blood Cell (RBC) Count 2.64 mill/uL (4.20-5.40); White Blood Cell (WBC) Count 12.4 thou/uL (4.8-10.8)
[2019-04-08 05:09] LABS: Anion Gap 14 mmol/L (10-20); BUN (Urea Nitrogen) 22 mg/dL (9.8-20.1); Calc. Creatinine Clearance 27 mL/min (70-130); Calcium 7.8 mg/dL (7.8-10.44); Carbon Dioxide 26 mmol/L (23-31); Chloride 96 mmol/L (98-107); Estimated GFR-MDRD 13; Glucose 165 mg/dL (80-115); Potassium 4.2 mmol/L (3.5-5.1); Sodium 132 mmol/L (136-145)
[2019-04-08] MEDS: Amiodarone 450 MG, Admixture Fee 1 EACH in Dextrose 5% in Water 250 ML IVPB SCH ×2 (05:42→17:57)
--- NOTE | 2019-04-08 06:15 | PDOC.FM ---
- Subjective Subjective: No overnight events. Intermittently on levophed overnight. Has been off for about 2 hours this morning. She reports pain all over and shortness of breath. Denies chest pain or abdominal pain. Her mouth is very dry but she is not allowing nursing staff to do oral care. Still intermittently needing suction as she is not able to swallow secretions. - Objective MAR Reviewed: Yes Vital Signs & Weight: Vital Signs (12 hours) Temp Pulse Ox 04/08/19 04:00 98.7 F 04/08/19 00:00 98.2 F 04/07/19 20:00 98.4 F 97 04/07/19 19:04 100 Weight Admit Weight 113 kg Weight 111.6 kg Most Recent Monitor Data Heart Rate from ECG 79 NIBP 118/61 NIBP BP-Mean 80 Respiration from ECG 18 SpO2 96 I&O: 04/06/19 04/07/19 04/08/19 06:59 06:59 06:59 Intake Total 1744 1296 689 Output Total 20 110 0 Balance 1724 1186 689 Result Diagrams: 04/08/19 04:00 04/08/19 03:55 Phys Exam - Physical Examination Yelling out "help me" Dry mucus membranes Diffuse crackles Cardiovascular: RRR systolic murmur Gastrointestinal: soft, non-tender Musculoskeletal: edema present Neurological: moves all 4 limbs Dx/Plan - Plan Plan: 64yo F being admitted for sepsis 2/2 UTI, NSTEMI type 2, transferred to ICU for sustained wide complex Vtach and Hypotension requiring pressors Septic Shock - Continue levophed. Currently at 8. Continue steroids - Blood cx, central line cx NGTD, urine culture with yeast, likely colonized - Continue with Cefepime and Vancomycin. Hyponatremia - 132 today, likely due to volume overload Dysrhythmias - Wide complex Vtach x3 s/p cardioversion x3 - Cardiology consulted, apprec recs - Continue Amiodarone 1mg/min NSTEMI type 2 - Indeterminate trops with cardiac arrhythmias with known hx of cardiac disease - No lovenox due to GI bleed - Cardiology consulted, appreciate recs. ESRD on HD - Single Needle Tufting Machine Operator, Dr. Marina following. Appreciate recs - Avoid nephrotoxic agents and monitor kidney function with daily labs Encephalopathy 2/2 Septic Shock - Worse yesterday, obtunded. Scopolamine added for secretions GI Bleeding - Reported by EMS and correction. H/H stable - FOBT ordered - EGD/Colonoscopy 2017 negative with diverticulosis. - Continue PPI DM II - SSI. Accuchecks q4H - Hypoglycemic protocol Chronic wounds - Wound care consulted CAD s/p stents - Auto Service Station Attendant is Dr Orozco Hx of Afib - Holding Eliquis for GI bleeding. H&H stable Hx of Mitral Valve repair Lines/Tubes: right IJ, 2 peripheral IVs Code status: DNR-DNI GI prophylaxis: Protonix
[2019-04-08] MEDS ORDERED: HYDROmorphone 2 MG TAB PO PRN (06:21)
[2019-04-08] MEDS: Famotidine/PF 20 mg/2ml Vial SLOW IVP SCH ×2 (08:33→08:58)
[2019-04-08] MEDS: Fluconazole In NaCl,Iso-Osm 100 MG in Admixture Fee 2 EACH IVPB SCH (08:38)
[2019-04-08] MEDS: HYDROmorphone 0.5 MG/0.5 ML SYRINGE IVPB SCH ×8 (08:38→23:11)
[2019-04-08] MEDS: Apixaban 2.5 MG TAB PO SCH ×2 (08:54→21:04)
[2019-04-08] MEDS ORDERED: HYDROmorphone 0.5 MG/0.5 ML SYRINGE ONE ×2 (12:41)
--- NOTE | 2019-04-08 12:43 | PRG ---
DATE OF SERVICE: 04/08/2019 SERVICE: Pulmonary Medicine. INTERVAL HISTORY: The patient is doing fine from respiratory standpoint. She has an NG tube in. Her mouth is dry. Her mucous membranes are dry. That being said, she got 3 to 4+ edema throughout. She is not tolerating dialysis and remains on a little bit of Levophed. Ultimately, she has multisystem organ dysfunction associated with end-stage disease processes. She is completely obtunded and cannot provide any additional elements of the history. Whenever I touch her, wherever I touch her, she tells me to stop and says that she has pain. PHYSICAL EXAMINATION: VITAL SIGNS: Afebrile. Pulse 62, blood pressure 97/54, respirations 21, saturation 99%, currently on 3 L nasal cannula. GENERAL: The patient is awake and alert, in no apparent distress. LUNGS: Good air entry. There is no prolonged expiratory phase or wheezing present. HEART: Normal rate. Regular. ABDOMEN: Soft, nontender, and nondistended. Bowel sounds positive. MUSCULOSKELETAL: No cyanosis or clubbing. There is diffuse 2 to 3+ pitting throughout. NEUROLOGIC: Encephalopathic. Nonfocal otherwise. LABORATORY DATA: WBC 12.4, hemoglobin 8.2, and platelets 178,000. Creatinine 3.62, which is steadily climbing. Sodium 132. Basic metabolic profile is otherwise unremarkable. Yeast is growing in the urine. Blood cultures x2 are otherwise unremarkable. ASSESSMENT: 1. Metabolic encephalopathy. 2. End-stage renal disease. 3. Atrial fibrillation with rapid ventricular response and aberrancy, currently rate controlled. 4. Acute blood loss anemia. DISCUSSION AND PLAN: This patient is clearly at the end of her life. She has multisystem organ dysfunction and is failing dialysis. She may have an infection. We are empirically giving her antibiotics for the same. That being said, the likelihood that she is going to have a meaningful recovery from this point is extremely low. Additionally, the patient's family has decided they wanted to suspend dialysis. That being said, we are being aggressive in other ways. Frankly, this does not make any sense. Critical Care will follow while she remains in this location, but I think that transition over to comfort measures only would be the most reasonable thing to do moving forward. Job ID: [id number] [facility]
--- NOTE | 2019-04-08 15:11 | PRG ---
DATE OF SERVICE: 04/08/2019 SUBJECTIVE: A 64-year-old female, seen for end-stage renal disease. The patient remains comatose. OBJECTIVE: GENERAL: The patient is resting. VITAL SIGNS: Afebrile, pulse 64, breathing 16, blood pressure 95/55. GENERAL APPEARANCE AND MENTAL STATUS: Fair. HEAD/NECK: Normocephalic. Atraumatic. EYES: EOMI. No deformity. EARS: Clear. No ulcers. NOSE: Intact. No lesions. MOUTH: Clear. No discharge. THROAT: Clear. No exudate. LUNGS: Clear. No crackles. CARDIAC: S1, S2. No rub. ABDOMEN: Benign. Bowel sounds positive. GENITALIA/RECTUM: Reid absent. BACK/EXTREMITIES: Edema 0+. NEUROLOGICAL: The patient is resting. SKIN: LYMPHATICS: LABORATORY DATA: Reviewed. ASSESSMENT AND PLAN: 1. Stage 6 chronic kidney disease. Family has refused dialysis. 2. Hypertension, stable. 3. Anemia, stable. I will sign off on this patient. Please re-consult as needed. Her overall prognosis is poor. Job ID: [id number]
[2019-04-08] MEDS: Cefepime 1 GM in Sodium Chloride 0.9% 100 ML IVPB SCH (17:30)
[2019-04-09] MEDS: HumaLOG 300 UNITS/3 ML VIAL SC PRN (00:57)
[2019-04-09] MEDS: HYDROmorphone 0.5 MG/0.5 ML SYRINGE IVPB SCH ×3 (00:57→04:59)
[2019-04-09] MEDS: Hydrocortisone Sod Succ/PF 100 mg/2 ml Vial IVP SCH ×2 (04:20→10:01)
[2019-04-09 04:47] LABS: #Lymphocytes 0.4 thou/uL (1.20-3.40); #Monocytes 0.5 thou/uL (0.11-0.59); #Neutrophils 12.9 thou/uL (1.40-6.50); %Basophils 0.1 % (0.0-1.0); %Lymphocytes 2.8 % (21.0-51.0); %Monocytes 3.5 % (0.0-10.0); %Neutrophils 93.5 % (42.0-75.0); Hemoglobin 8.6 g/dL (12.0-16.0); Mean Corpuscular HGB CONC 31.1 g/dL (32.0-36.0); Mean Corpuscular Hemoglobin 30.8 pg (27.0-31.0); Mean Platelet Volume 8.5 fL (7.4-10.4); Platelet Count 164 thou/uL (130-400); RBC Distribution Width 16.6 % (11.5-14.5); White Blood Cell (WBC) Count 13.8 thou/uL (4.8-10.8)
[2019-04-09 05:12] LABS: Anion Gap 16 mmol/L (10-20); BUN (Urea Nitrogen) 28 mg/dL (9.8-20.1); Calc. Creatinine Clearance 24 mL/min (70-130); Calcium 8.3 mg/dL (7.8-10.44); Carbon Dioxide 25 mmol/L (23-31); Chloride 97 mmol/L (98-107); Estimated GFR-MDRD 11; Glucose 124 mg/dL (80-115); Potassium 4.6 mmol/L (3.5-5.1); Sodium 133 mmol/L (136-145)
[2019-04-09 05:19] LABS: Vancomycin, Random 16.3 ug/mL (See Comment)
--- NOTE | 2019-04-09 06:30 | PDOC.FM ---
- Subjective Subjective: Family present in the room this morning. She had 2 episodes of bradycardia overnight. No longer on Lidocaine, Amiodarone or pressors. BP has been stable. Reports pain when not receiving pain medication. - Objective MAR Reviewed: Yes Vital Signs & Weight: Vital Signs (12 hours) Temp Pulse Ox 04/09/19 04:00 98 04/09/19 02:44 94 L 04/09/19 00:00 98.7 F 87 L 04/08/19 20:00 98.5 F 99 Weight Admit Weight 113 kg Weight 111.6 kg Most Recent Monitor Data Heart Rate from ECG 64 NIBP 127/50 NIBP BP-Mean 75 Respiration from ECG 23 SpO2 94 I&O: 04/07/19 04/08/19 04/09/19 06:59 06:59 06:59 Intake Total 1296 1721 1742 Output Total 110 0 0 Balance 1186 1721 1742 Result Diagrams: 04/09/19 04:00 04/09/19 04:00 Phys Exam - Physical Examination Constitutional: NAD Dry MM Diffuse crackles Cardiovascular: RRR Systolic murmur Gastrointestinal: soft, non-tender, positive bowel sounds Musculoskeletal: edema present Deviation from normal: lethargic Dx/Plan - Plan Plan: 64yo F being admitted for sepsis 2/2 UTI, NSTEMI type 2, transferred to ICU for sustained wide complex Vtach and Hypotension requiring pressors Septic Shock, resolved - Levophed d/c'ed, family would not like to restart if indicated - Blood cx, central line cx NGTD, urine culture with yeast, likely colonized - Discontinue Cefepime and Vancomycin. Treated x7days and cultures neg - Hospice and CM consulted. Family would like inpt hospice - Diluadid and Ativan for comfort Hyponatremia Dysrhythmias - Wide complex Vtach x3 s/p cardioversion x3 - Cardiology consulted - Complete DNR, no shocks NSTEMI type 2 - Indeterminate trops with cardiac arrhythmias with known hx of cardiac disease - Cardiology consulted ESRD on HD - Still Operator Gin, Dr. Marina following. - Stopping dialysis Encephalopathy 2/2 Septic Shock - Scopolamine for secretions DM II - SSI. Accuchecks q4H - Hypoglycemic protocol Chronic wounds - Wound care consulted CAD s/p stents - Manager Continuous Improvement is Dr Orozco Hx of Afib - Continue Eliquis Hx of Mitral Valve repair Lines/Tubes: right IJ, 2 peripheral IVs Code status: DNR-DNI GI prophylaxis: Protonix Addendum - Attending - Attending Attestation Date/Time: 04/09/19 1033 I personally evaluated the patient and discussed the management with Dr. Mohamud. I agree with the History, Examination, Assessment and Plan documented above with any addition or exceptions noted below. Patient here for MODS due to septic shock. She is not tolerating dialysis. She is being kept comfortable and will consult hospice this morning per family request.
[2019-04-09] MEDS ORDERED: HYDROmorphone 0.5 MG/0.5 ML SYRINGE IVPB PRN (06:31)
[2019-04-09] MEDS: Apixaban 2.5 MG TAB PO SCH (08:27)
[2019-04-09] MEDS: Famotidine/PF 20 mg/2ml Vial SLOW IVP SCH (08:28)
[2019-04-09] MEDS: Fluconazole In NaCl,Iso-Osm 100 MG in Admixture Fee 2 EACH IVPB SCH (08:28)
[2019-04-09] MEDS: Scopolamine 1.5 mg/72 hour Patch TD SCH (09:52)
[2019-04-09] MEDS: Lorazepam 2 MG/ML VIAL SLOW IVP PRN ×2 (09:53→13:56)
--- NOTE | 2019-04-09 09:56 | PDOC.PALPN ---
Palliative Progress Note - Subjective Sleeping, confused. Intermittently moans, but no purposeful response. - Objective Vital Signs: Vital Signs - Most Recent Temp Pulse Resp BP Pulse Ox 98.1 F 84 20 97/78 100 04/09/19 07:00 04/04/19 12:00 04/04/19 12:00 04/04/19 12:00 04/09/19 07:18 - Physical Exam Constitutional: encephalitic, moderate distress HEENT: moist MMs Respiratory: unlabored breathing, diminished lung sound Cardiovascular: RRR, diminished peripheral pulses Musculoskeletal: edema present, diffuse muscle atrophy Skin: bruising, fragile, friable - Assessment (1) Palliative care encounter Code(s): Z51.5 - ENCOUNTER FOR PALLIATIVE CARE Current Visit: Yes Status: Acute (2) Physical deconditioning Code(s): R53.81 - OTHER MALAISE Current Visit: Yes Status: Acute (3) Atrial fibrillation, chronic Code(s): I48.2 - CHRONIC ATRIAL FIBRILLATION * DO NOT USE * Current Visit: No Status: Chronic (4) ESRD (end stage renal disease) on dialysis Code(s): N18.6 - END STAGE RENAL DISEASE; Z99.2 - DEPENDENCE ON RENAL DIALYSIS Current Visit: No Status: Chronic - Plan Plan: Visited with patient sister Fernanda. Patient continues to be fragile medically. Family has opted for comfort care and management of symptoms through Hospice care. *Physicians informed of family decision *Will add atropine gtts if needed to mitigate secretions *CM notified of family request for Hospice/ and specifically [facility]. * Palliative Care will follow until care is assumed by Hospice. [40] minutes spent on this encounter with >50% of the time in counseling and coordination of care. - ROS Non Response: due to mental status
[2019-04-09 12:04] VITALS: TEMP 98.8
--- NOTE | 2019-04-10 18:52 | DIS ---
DATE OF ADMISSION: 04/03/2019 DATE OF DISCHARGE: 04/09/2019 RESIDENT: Mayra Mohamud, PGY-2. ADMITTING ATTENDING: Erik Guallpa MD DISCHARGE ATTENDING: Winston Stewart MD CONSULTS: 1. Palliative Care. 2. Pulmonology. 3. Nephrology. 4. Cardiology. 5. General Surgery. PROCEDURES: 1. Chest x-ray on 04/03/2019, cardiomegaly without evidence of acute cardiopulmonary disease. 2. Chest x-ray on 06/05/2018, stable exam. 3. Chest x-ray on 04/05/2019, pulmonary vascular congestion. 4. Abdomen x-ray on 04/07/2019, Dobhoff tube located in distal stomach, proximal duodenum. PRIMARY DIAGNOSES: 1. Septic shock secondary to urinary tract infection, resolved. 2. Hyponatremia. 3. Dysrhythmias. 4. [id number] myocardial infarction type 2. SECONDARY DIAGNOSES: 1. End-stage renal disease, on hemodialysis. 2. Encephalopathy secondary to septic shock and chronic illness. 3. Type 2 diabetes. 4. Chronic wounds. 5. Coronary artery disease status post stents. 6. History of atrial fibrillation. 7. History of mitral valve repair. DISCHARGE MEDICATIONS: 1. Dilaudid 1 mg IV q.2 hours p.r.n. 2. Ativan 1 mg q.4 hours p.r.n. 3. Scopolamine 1.5 mg transdermally q.3 days. 4. Hydrocortisone 50 mg IV q.6 hours. DISCONTINUED MEDICATIONS: 1. Atorvastatin 20 mg at bedtime. 2. Gabapentin 100 mg b.i.d. 3. Multaq 400 mg daily. 4. Humulin sliding scale. 5. Pantoprazole 40 mg daily. 6. Tylenol No. 3 with codeine. 7. Vitamin C daily. 8. Levothyroxine 50 mcg daily. 9. Zofran 4 mg q.6 hours p.r.n. 10. MiraLAX 17 g daily. 11. Famotidine 40 mg at bedtime. 12. Eliquis 2.5 mg b.i.d. 13. Docusate sodium 100 mg b.i.d. 14. Buspirone 5 mg t.i.d. 15. Amiodarone 200 mg daily. 16. Calamine-zinc oxide daily. HISTORY OF PRESENT ILLNESS/HOSPITAL COURSE: Ms. Bocanegra is a 64-year-old female with past medical history of end-stage renal disease, type 2 diabetes, hypertension, atrial fibrillation, and coronary artery disease, who is a resident at a alf in [place]. She was brought in for altered mental status. She had missed a couple of sessions of dialysis. During EMS transport to the hospital, she was noted to go into ventricular tachycardia. She was converted to normal sinus rhythm. Hyperkalemia protocol was initiated and she was given insulin, D50, and calcium chloride as well as Zofran, albuterol, Protonix, Rocephin, vancomycin and gentamicin as well as Geodon while in the ED. Urine sample was collected and noted to be purulent with 4+ bacteria, greater than 50 white blood cells and large amount of leukocyte esterase. Urine culture grew out Tracey; however, the patient is anuric and she is likely colonized, but due to her low blood pressures and diagnosis of septic shock, she was treated with antibiotics for a total of 10 days. She also noted by EMS to have a large amount of bright red blood per rectum. In regard to her sepsis, her blood cultures were negative. She was given Rocephin, vancomycin, and gentamicin in the ED and continued on cefepime and vancomycin and was briefly on micafungin before it was discontinued. She was started on pressors after talking to the family and they reported that this is what she would want and she was unable to wean off pressors. When she was unable to wean off pressors, she was started on hydrocortisone and ultimately, she was able to be taken off. She is noted to have dysrhythmias throughout the course of her hospitalization. Cardiology was consulted. Her initial troponin 1.291. Anticoagulation was held due to reported GI bleeding. She underwent cardioversion x3 and was started on amiodarone. She was given a dose of digoxin and then started on amiodarone. Continued to have dysrhythmias despite this; therefore, was started on diltiazem. Her rate was then controlled. This was discontinued and after another episode of ventricular tachycardia, she was started on lidocaine in addition to amiodarone. This was discussed with the family and ultimately could not be a long-term solution. Family decided to stop antiarrhythmics, pressors, and pursue hospice care for comfort. Overnight during one of the nights of her hospital course, she declined and was unable to swallow her secretions. She was started on scopolamine patch as well as morphine for air hunger that was switched to Dilaudid due to renal function and later, Ativan was started for the patient's anxiety. Per Nutrition, the patient was started on tube feeds and family chose not to continue these when they pursued comfort care. The patient's chronic wounds were managed by wound care. She was a DNR/DNI and discharged to hospice inpatient care. DISPOSITION: Poor prognosis. DISCHARGE INSTRUCTIONS: 1. Location: Inpatient hospice. 2. Diet: N.p.o. 3. Activity: The patient is bedbound. 4. The patient needs to follow up with hospice physician. Job ID: [id number]
== END 2019-04-09 14:30 | disposition hospice, inpatient (51) | DRG 871 ==
LOC: ERS 11:33 → IMCU/EMU 17:09 → CCU 04-04 15:59
PROVIDERS: ADMIT Emergency Medicine; ATTEND Emergency Medicine
PROC: 5A2204Z Restoration of Cardiac Rhythm, Single (ICD-10-PCS; 2019-04-03)
PROC: 5A1D70Z Performance of Urinary Filtration, Intermittent, Less than 6 Hours Per Day (ICD-10-PCS; 2019-04-03)
PROC: 02HV33Z Insertion of Infusion Device into Superior Vena Cava, Percutaneous Approach (ICD-10-PCS; 2019-04-03)
PROC: 3E043XZ Introduction of Vasopressor into Central Vein, Percutaneous Approach (ICD-10-PCS; principal; 2019-04-04)
PROC: 5A2204Z Restoration of Cardiac Rhythm, Single (ICD-10-PCS; 2019-04-04)
PROC: 5A2204Z Restoration of Cardiac Rhythm, Single (ICD-10-PCS; 2019-04-05)
DX: A41.9 Sepsis, unspecified organism (principal); R65.21 Severe sepsis with septic shock; I21.A1 Myocardial infarction type 2; N18.6 End stage renal disease; Z66 Do not resuscitate; G93.41 Metabolic encephalopathy; E87.1 Hypo-osmolality and hyponatremia; I47.2 Ventricular tachycardia; I48.20 Chronic atrial fibrillation, unspecified; K62.5 Hemorrhage of anus and rectum; K51.90 Ulcerative colitis, unspecified, without complications; N39.0 Urinary tract infection, site not specified; D62 Acute posthemorrhagic anemia; I13.2 Hypertensive heart and chronic kidney disease with heart failure and with stage 5 chronic kidney disease, or end stage renal disease; Z51.5 Encounter for palliative care; E11.22 Type 2 diabetes mellitus with diabetic chronic kidney disease; I25.10 Atherosclerotic heart disease of native coronary artery without angina pectoris; E87.5 Hyperkalemia; E78.5 Hyperlipidemia, unspecified; E03.9 Hypothyroidism, unspecified; Z96.642 Presence of left artificial hip joint; F32.9 Major depressive disorder, single episode, unspecified; F41.9 Anxiety disorder, unspecified; I50.9 Heart failure, unspecified; D63.1 Anemia in chronic kidney disease; S86.092A Other specified injury of left Achilles tendon, initial encounter; S86.091A Other specified injury of right Achilles tendon, initial encounter; X58.XXXA Exposure to other specified factors, initial encounter; Z88.0 Allergy status to penicillin; Z99.2 Dependence on renal dialysis; Z95.5 Presence of coronary angioplasty implant and graft; Z88.8 Allergy status to other drugs, medicaments and biological substances; Z91.048 Other nonmedicinal substance allergy status; Z79.899 Other long term (current) drug therapy; Z79.4 Long term (current) use of insulin; Z90.49 Acquired absence of other specified parts of digestive tract; Z95.2 Presence of prosthetic heart valve; Z95.0 Presence of cardiac pacemaker; Z90.710 Acquired absence of both cervix and uterus; Z88.5 Allergy status to narcotic agent; Z91.040 Latex allergy status
CPT/HCPCS: 36416; 36556; 51702; 71045; 74018; 80048; 80053; 80202; 80307; 81003; 81015; 82140; 82330; 82553; 82803; 83605; 83880; 84145; 84443; 84484; 85025; 86850; 86900; 86901; 87040; 87086; 90935; 93005; 93010; 94644; 96365; 96367; 96372; 96374; 96375; 99292; C9113; G0257; J0282; J0692; J0696; J1170; J1450; J1720; J1815; J2001; J2060; J2248; J2270; J2405; J3010; J3370; J3486; J3490; J7050; J7070; J7611; P9045; P9047; S0028